=== PATIENT | female | born 1985 | race Caucasian/White ===

== ENCOUNTER 2017-06-26 20:12 | Emergency (ER) | payer OTHER ==
[~2017-06-26] VITALS: Ht 157.5 cm; Wt 59.0 kg
[~2017-06-26 20:12] MED LIST: ALBU90OI INH; ALBU90OI6 INH; AMOCLA875 PO; AMOX500 PO; ARIP10 PO; ARIP15 PO; ARIP30 PO; Abilify2 MG; BENZ1 PO; BENZ2 PO; Benadryl 50 mg50 MG PO; DIPH50 PO; FERR325 PO; FLUT.05NI; Ferrous Sulfat324 MG PO; GABA300 PO; HYDACE5 PO; IBUP600 PO; IBUP800 PO; LATUDA20 MG PO; LEVFLO500 PO; LEVSOD100 PO; LEVSOD25 PO; LEVSOD50 PO; LEVSOD75 PO; LITH300C PO; LITH300ER PO; LORA10 PO; LOXA10 PO; LOXA5 PO; Macrobid 100 M100 MG PO; OLAN10 PO; OXYACE5T PO; PENVK500 PO; PROM25 PO; QUET200; RISPERDAL IM; SERT50 PO; SULTRIDS PO; TRAM50 PO; Verotin-Gr Cap1 EACH PO; ZIPR20 PO; ZOLP10 PO; [UNRECOGNIZED DRUG - OTHER] PO
[2017-06-26] MEDS ORDERED: Benadryl 50 mg50 MG PO (20:40)
== END 2017-06-26 20:45 | disposition home or self-care (01) ==
LOC: ER 20:12
DX: R51 Headache (principal); F20.9 Schizophrenia, unspecified; F32.9 Major depressive disorder, single episode, unspecified; F17.200 Nicotine dependence, unspecified, uncomplicated; Z88.8 Allergy status to other drugs, medicaments and biological substances; Z79.899 Other long term (current) drug therapy
CPT/HCPCS: 99283

== ENCOUNTER 2017-06-29 20:28 | Emergency (ER) | payer OTHER ==
[~2017-06-29] VITALS: Ht 160 cm; Wt 65.8 kg
== END 2017-06-29 21:18 | disposition home or self-care (01) ==
LOC: ER 20:28
DX: G24.09 Other drug induced dystonia (principal); F32.9 Major depressive disorder, single episode, unspecified; F17.200 Nicotine dependence, unspecified, uncomplicated; F20.9 Schizophrenia, unspecified; Z88.8 Allergy status to other drugs, medicaments and biological substances; Z79.899 Other long term (current) drug therapy
CPT/HCPCS: 99283

== ENCOUNTER 2017-07-28 15:27 | Emergency (ER) | payer OTHER ==
[~2017-07-28] VITALS: Ht 157.5 cm; Wt 59.0 kg
[2017-07-29] MEDS ORDERED: Abilify2 MG (15:34)
[2017-07-29] MEDS ORDERED: FERSU90EL (15:35)
[2017-07-29] MEDS ORDERED: CLON.2 (15:35)
[2017-07-29] MEDS ORDERED: LEVSOD100 (15:35)
== END 2017-07-28 16:13 | disposition home or self-care (01) ==
LOC: ER 15:27
DX: G24.09 Other drug induced dystonia (principal); T43.595A Adverse effect of other antipsychotics and neuroleptics, initial encounter; F20.9 Schizophrenia, unspecified; F32.9 Major depressive disorder, single episode, unspecified; F17.210 Nicotine dependence, cigarettes, uncomplicated; Z88.8 Allergy status to other drugs, medicaments and biological substances; Z79.899 Other long term (current) drug therapy
CPT/HCPCS: 96372; 99283; J1200

== ENCOUNTER 2017-07-29 14:10 | Emergency (ER) | payer OTHER ==
[~2017-07-29] VITALS: Ht 157.5 cm; Wt 59.0 kg
[2017-07-29] MEDS ORDERED: Abilify2 MG (15:34)
[2017-07-29] MEDS ORDERED: CLON.2 (15:35)
[2017-07-29] MEDS ORDERED: FERSU90EL (15:35)
[2017-07-29] MEDS ORDERED: LEVSOD100 (15:35)
== END 2017-07-29 15:51 | disposition home or self-care (01) ==
LOC: ER 14:10
DX: G24.9 Dystonia, unspecified (principal); Z88.8 Allergy status to other drugs, medicaments and biological substances; Z79.899 Other long term (current) drug therapy; F20.9 Schizophrenia, unspecified; F32.9 Major depressive disorder, single episode, unspecified; F17.210 Nicotine dependence, cigarettes, uncomplicated
CPT/HCPCS: 96372; 99283; J1200

== ENCOUNTER 2017-07-31 07:55 | Emergency (ER) | payer OTHER ==
[~2017-07-31] VITALS: Ht 157.5 cm; Wt 59.0 kg
[~2017-07-31 07:55] MED LIST changes: +CLON.2; +FERSU90EL; +LEVSOD100
== END 2017-07-31 09:12 | disposition home or self-care (01) ==
LOC: ER 07:55
DX: G24.09 Other drug induced dystonia (principal); T43.595A Adverse effect of other antipsychotics and neuroleptics, initial encounter; F20.9 Schizophrenia, unspecified; F32.9 Major depressive disorder, single episode, unspecified; Z88.8 Allergy status to other drugs, medicaments and biological substances; Z79.899 Other long term (current) drug therapy
CPT/HCPCS: 99283

== ENCOUNTER → 2017-08-04 | Outpatient (CLI) | payer OTHER ==
[2017-08-04 11:50] LABS: U Amphetamine Screen Not Detected; U Barbituate Screen Not Detected; U Benzodiazapine Screen Not Detected; U Buprenorphine Screen Not Detected; U Cannabinoids Screen Not Detected; U Cocaine Screen Not Detected; U Methadone Screen Not Detected; U Methamphetamine Screen Not Detected; U Opiates Screen Not Detected; U Oxycodone Screen Not Detected; U Phencyclidine Screen Not Detected; U Propoxyphene Screen Not Detected
== END ==
LOC: LAB 11:07 → LAB SHORT 11:07
PROVIDERS: Psychiatry & Neurology Psychiatry
DX: F19.10 Other psychoactive substance abuse, uncomplicated (principal); Z79.899 Other long term (current) drug therapy

== ENCOUNTER → 2017-08-15 | Outpatient (CLI) | payer OTHER ==
[2017-08-15 16:04] LABS: Percent Saturation 12.9 % (15.0-50.0)
== END ==
LOC: LAB SHORT 15:32 → LAB 15:32
PROVIDERS: Psychiatry & Neurology Psychiatry
DX: Z39.2 Encounter for routine postpartum follow-up (principal); Z13.0 Encounter for screening for diseases of the blood and blood-forming organs and certain disorders involving the immune mechanism; Z13.1 Encounter for screening for diabetes mellitus
CPT/HCPCS: 82728; 83036; 83540; 83550

== ENCOUNTER 2017-10-08 08:25 | Emergency (ER) | payer OTHER ==
[~2017-10-08] VITALS: Ht 157.5 cm; Wt 54.4 kg
== END 2017-10-08 11:17 | disposition home or self-care (01) ==
LOC: ER 08:25
DX: R10.2 Pelvic and perineal pain (principal); M54.5 Low back pain; F17.210 Nicotine dependence, cigarettes, uncomplicated; F32.9 Major depressive disorder, single episode, unspecified; F20.9 Schizophrenia, unspecified; Z88.8 Allergy status to other drugs, medicaments and biological substances; Z79.899 Other long term (current) drug therapy
CPT/HCPCS: 74022; 99284

== ENCOUNTER 2018-10-13 19:40 | Emergency (ER) | payer OTHER ==
[~2018-10-13] VITALS: Ht 157.5 cm; Wt 59.0 kg
[2018-10-13 20:30] LABS: Source, Urine Clean Catch
[2018-10-13 20:36] LABS: Bilirubin, Urine Neg (Neg); Blood, Urine 1+ (Neg); Glucose Qualitative, Urine Neg (Neg); Ketones, Urine 1+ (Neg); Leukocyte Esterase, Urine 1+ (Neg); Nitrite, Urine Neg (Neg); Protein, Urine 1+ (Neg); Specific Gravity, Urine 1.025 (1.003-1.022); Urobilinogen, Urine 1+ (Normal)
[2018-10-13 20:38] LABS: Color, Urine Yellow (P-Yellow)
[2018-10-13 20:39] LABS: Appearance, Urine Clear (Clear)
[2018-10-13] MEDS ORDERED: KETO10 PO (20:53)
[2018-10-13 20:54] LABS: Bacteria Few /hpf; Mucus Mod (0-Heavy); Red Blood Cells, Urine 0-2 /hpf (0-2); Squamous Epithelial Cells Few /hpf (Few); White Blood Cells, Urine 0-2 /hpf (0-5)
== END 2018-10-13 21:00 | disposition home or self-care (01) ==
LOC: ER 19:40
PROVIDERS: Physician Assistant
DX: N94.6 Dysmenorrhea, unspecified (principal); F17.210 Nicotine dependence, cigarettes, uncomplicated; F20.9 Schizophrenia, unspecified; F32.9 Major depressive disorder, single episode, unspecified; Z79.899 Other long term (current) drug therapy
CPT/HCPCS: 81001; 87086; 96372; 99283-25; J1885

== ENCOUNTER → 2020-05-28 | Outpatient (CLI) | payer OTHER ==
[~2020-05-28] MED LIST changes: +KETO10 PO
[2020-05-29 14:05] LABS: Candida species (DNA Probe) Negative (NEGATIVE); G. vaginalis (DNA Probe) Positive (NEGATIVE); T. vaginalis (DNA Probe) Negative (NEGATIVE)
[2020-05-30 13:10] LABS: CHLAMYDIA BY NAA Negative (Negative); GONOCOCCUS BY NAA Negative (Negative); TRICH VAG BY NAA Negative (Negative)
== END | disposition home or self-care (01) ==
LOC: LAB EV 16:33
PROVIDERS: Physician Assistant
DX: Z20.9 Contact with and (suspected) exposure to unspecified communicable disease (principal); Z11.3 Encounter for screening for infections with a predominantly sexual mode of transmission
CPT/HCPCS: 87480; 87491; 87510; 87591; 87660; 87661

== ENCOUNTER → 2021-05-25 | Outpatient (CLI) | payer OTHER ==
[2021-05-25 19:14] LABS: BASOPHILS ABSOLUTE AUTO 0.05 K/mm3 (0.00-0.23); BASOPHILS PERCENT AUTO 1 % (0-2); EOSINOPHILS ABSOLUTE AUTO 0.04 K/mm3 (0.00-0.68); EOSINOPHILS PERCENT AUTO 1 % (0-6); Hematocrit 38.3 % (33.0-51.0); Hemoglobin 12.8 g/dL (11.5-16.0); IMMATURE GRAN ABSOLUTE AUTO 0.03 K/mm3 (0.00-0.10); IMMATURE GRAN PERCENT AUTO 0 % (0-1); LYMPHOCYTES ABSOLUTE AUTO 2.36 K/mm3 (0.84-5.20); LYMPHOCYTES PERCENT AUTO 28 % (21-46); MONOCYTES ABSOLUTE AUTO 0.38 K/mm3 (0.16-1.47); MONOCYTES PERCENT AUTO 5 % (4-13); Mean Corpuscular HGB Conc 33.4 g/dL (31.5-36.5); Mean Corpuscular Volume 102 fL (80-100); Mean Platelet Volume 9.4 fL (9.1-12.4); NEUTROPHILS ABSOLUTE AUTO 5.57 K/mm3 (1.96-9.15); NEUTROPHILS PERCENT AUTO 66 % (41-73); Platelet Count 286 K/mm3 (150-400); RDW Coefficient Variation 17.2 % (11.7-14.2); Red Blood Cell Count 3.77 M/mm3 (3.80-5.20); White Blood Cell Count 8.43 K/mm3 (4.00-11.30)
[2021-05-25 19:29] LABS: Free Thyroxine 0.27 ng/dL (0.70-1.60)
[2021-05-25 19:58] LABS: Triiodothyronine, Free 1.18 pg/mL (2.18-3.98)
== END ==
LOC: LAB SHORT 16:00
PROVIDERS: Family Medicine
DX: D64.9 Anemia, unspecified (principal); E03.9 Hypothyroidism, unspecified
CPT/HCPCS: 84439; 84443; 84481; 85025

== ENCOUNTER → 2021-07-22 | Outpatient (CLI) | payer OTHER | END | disposition home or self-care (01) | LOC: LAB SHORT 18:59 → LAB 18:59 | DX: E03.9 Hypothyroidism, unspecified (principal) | CPT/HCPCS: 84443 ==

== ENCOUNTER 2021-08-15 16:56 | Emergency (ER) | payer OTHER ==
[~2021-08-15] VITALS: Ht 160 cm; Wt 102.1 kg
== END 2021-08-15 18:55 | disposition home or self-care (01) ==
LOC: ER 16:56
DX: F41.9 Anxiety disorder, unspecified (principal); F17.210 Nicotine dependence, cigarettes, uncomplicated; Z88.8 Allergy status to other drugs, medicaments and biological substances
CPT/HCPCS: A9270

== ENCOUNTER 2022-01-22 16:54 | Emergency (ER) | payer OTHER ==
[~2022-01-22] VITALS: Ht 157.5 cm; Wt 77.1 kg
[2022-01-22] MEDS ORDERED: ABILIFY MAINTE400 M1 IM (17:57)
[2022-01-22] MEDS ORDERED: EUTHYROX112 MC1 PO (17:58)
== END 2022-01-22 18:05 | disposition home or self-care (01) ==
LOC: ER 16:54
DX: R25.8 Other abnormal involuntary movements (principal); R68.84 Jaw pain; F17.210 Nicotine dependence, cigarettes, uncomplicated; Z79.899 Other long term (current) drug therapy; Z88.8 Allergy status to other drugs, medicaments and biological substances
CPT/HCPCS: J1200

== ENCOUNTER 2022-01-23 19:09 | Emergency (ER) | payer OTHER ==
[~2022-01-23] VITALS: Ht 157.5 cm; Wt 77.1 kg
[~2022-01-23 19:09] MED LIST changes: +ABILIFY MAINTE400 M1 IM; +EUTHYROX112 MC1 PO
== END 2022-01-23 20:12 | disposition home or self-care (01) ==
LOC: ER 19:09
DX: R25.9 Unspecified abnormal involuntary movements (principal); F17.210 Nicotine dependence, cigarettes, uncomplicated; Z88.8 Allergy status to other drugs, medicaments and biological substances
CPT/HCPCS: 99283

== ENCOUNTER 2022-01-24 19:57 | Emergency (ER) | payer OTHER ==
[~2022-01-24] VITALS: Ht 157.5 cm; Wt 77.1 kg
== END 2022-01-24 22:20 | disposition home or self-care (01) ==
LOC: ER 19:57
DX: T78.40XA Allergy, unspecified, initial encounter (principal); F17.210 Nicotine dependence, cigarettes, uncomplicated
CPT/HCPCS: 99285

== ENCOUNTER 2022-08-14 18:13 | Emergency (ER) | payer OTHER ==
[~2022-08-14] VITALS: Ht 157.5 cm; Wt 73.5 kg
[2022-08-14 19:15] LABS: BASOPHILS ABSOLUTE AUTO 0.04 K/mm3 (0.00-0.23); BASOPHILS PERCENT AUTO 1 % (0-2); EOSINOPHILS ABSOLUTE AUTO 0.06 K/mm3 (0.00-0.68); EOSINOPHILS PERCENT AUTO 1 % (0-6); Hematocrit 41.2 % (33.0-51.0); Hemoglobin 13.9 g/dL (11.5-16.0); IMMATURE GRAN ABSOLUTE AUTO 0.03 K/mm3 (0.00-0.10); IMMATURE GRAN PERCENT AUTO 0 % (0-1); LYMPHOCYTES ABSOLUTE AUTO 2.39 K/mm3 (0.84-5.20); LYMPHOCYTES PERCENT AUTO 28 % (21-46); MONOCYTES ABSOLUTE AUTO 0.34 K/mm3 (0.16-1.47); MONOCYTES PERCENT AUTO 4 % (4-13); Mean Corpuscular HGB Conc 33.7 g/dL (31.5-36.5); Mean Corpuscular Volume 98 fL (80-100); Mean Platelet Volume 10.5 fL (9.1-12.4); NEUTROPHILS ABSOLUTE AUTO 5.62 K/mm3 (1.96-9.15); NEUTROPHILS PERCENT AUTO 66 % (41-73); Platelet Count 325 K/mm3 (150-400); RDW Coefficient Variation 12.6 % (11.7-14.2); RDW Standard Deviation 45.4 fL (35.1-46.3); Red Blood Cell Count 4.21 M/mm3 (3.80-5.20); White Blood Cell Count 8.48 K/mm3 (4.00-11.30)
[2022-08-14 19:19] LABS: Source, Urine Clean Catch
[2022-08-14 19:21] LABS: Appearance, Urine Clear (Clear); Bilirubin, Urine Neg (Neg); Blood, Urine Neg (Neg); Color, Urine Yellow (P-Yellow); Glucose Qualitative, Urine 4+ (Neg); Ketones, Urine 3+ (Neg); Leukocyte Esterase, Urine Neg (Neg); Nitrite, Urine Neg (Neg); Protein, Urine Neg (Neg); Urobilinogen, Urine NORM (Normal)
[2022-08-14 19:34] LABS: Bilirubin, Total 0.2 mg/dL (0.1-1.0); Bun/Creatinine Ratio 12.3 (12.0-20.0); Calcium, Blood 10.1 mg/dL (8.5-10.1); Creatinine, Blood 0.57 mg/dL (0.40-1.00); Globulin, Blood 4.2 g/dL (2.2-4.0); Potassium, Blood 4.2 mmol/L (3.5-5.5); Total Protein, Blood 8.2 g/dL (6.4-8.2)
[2022-08-14 22:07] LABS: Candida species (DNA Probe) Positive (NEGATIVE); G. vaginalis (DNA Probe) Positive (NEGATIVE); T. vaginalis (DNA Probe) Negative (NEGATIVE)
[2022-08-14] MEDS ORDERED: Diflucan150 MG PO (22:34)
[2022-08-14] MEDS ORDERED: METF500 PO (22:34)
== END 2022-08-14 23:07 | disposition home or self-care (01) ==
LOC: ER 18:13
PROVIDERS: Emergency Medicine; Student in an Organized Health Care Education/Training Program
DX: E11.65 Type 2 diabetes mellitus with hyperglycemia (principal); B37.31 Acute candidiasis of vulva and vagina; F20.9 Schizophrenia, unspecified; F17.200 Nicotine dependence, unspecified, uncomplicated; Z79.899 Other long term (current) drug therapy
CPT/HCPCS: 36415; 80053; 81003; 82947; 83036; 85025; 87480; 87510; 87660; A9270; J1815; J7120

== ENCOUNTER → 2023-06-29 | Outpatient (CLI) | payer OTHER ==
[~2023-06-29] MED LIST changes: +Diflucan150 MG PO; +METF500 PO
== END ==
LOC: LAB 17:42 → LAB SHORT 17:42
DX: E03.9 Hypothyroidism, unspecified (principal)
CPT/HCPCS: 84443

== ENCOUNTER 2023-07-31 14:34 | Emergency (ER) | payer OTHER ==
[~2023-07-31] VITALS: Ht 157.5 cm; Wt 57.6 kg
[2023-07-31 14:39] VITALS: BP 104/91
== END 2023-07-31 16:11 | disposition home or self-care (01) ==
LOC: ER 14:34
DX: S00.12XA Contusion of left eyelid and periocular area, initial encounter (principal); S00.11XA Contusion of right eyelid and periocular area, initial encounter; S00.83XA Contusion of other part of head, initial encounter; F17.210 Nicotine dependence, cigarettes, uncomplicated; F20.9 Schizophrenia, unspecified; F32.A Depression, unspecified; X58.XXXA Exposure to other specified factors, initial encounter; Z79.899 Other long term (current) drug therapy; Z79.890 Hormone replacement therapy; Z79.84 Long term (current) use of oral hypoglycemic drugs; Z88.8 Allergy status to other drugs, medicaments and biological substances
CPT/HCPCS: 70450; 70486; 99283-25

== ENCOUNTER 2023-12-25 10:57 | Emergency (ER) | payer OTHER ==
[~2023-12-25] VITALS: Ht 157.5 cm; Wt 52.2 kg
[2023-12-25 11:35] LABS: BASOPHILS ABSOLUTE AUTO 0.04 K/mm3 (0.00-0.23); BASOPHILS PERCENT AUTO 0 % (0-2); EOSINOPHILS ABSOLUTE AUTO 0.05 K/mm3 (0.00-0.68); EOSINOPHILS PERCENT AUTO 0 % (0-6); Hematocrit 36.8 % (33.0-51.0); Hemoglobin 12.6 g/dL (11.5-16.0); IMMATURE GRAN ABSOLUTE AUTO 0.03 K/mm3 (0.00-0.10); IMMATURE GRAN PERCENT AUTO 0 % (0-1); LYMPHOCYTES ABSOLUTE AUTO 2.43 K/mm3 (0.84-5.20); LYMPHOCYTES PERCENT AUTO 21 % (21-46); MONOCYTES ABSOLUTE AUTO 0.33 K/mm3 (0.16-1.47); MONOCYTES PERCENT AUTO 3 % (4-13); Mean Corpuscular HGB 31.9 pg (26.0-34.0); Mean Corpuscular HGB Conc 34.2 g/dL (31.5-36.5); Mean Corpuscular Volume 93 fL (80-100); Mean Platelet Volume 9.6 fL (9.1-12.4); NEUTROPHILS ABSOLUTE AUTO 8.98 K/mm3 (1.96-9.15); NEUTROPHILS PERCENT AUTO 76 % (41-73); Platelet Count 355 K/mm3 (150-400); RDW Coefficient Variation 13.3 % (11.7-14.2); RDW Standard Deviation 45.6 fL (35.1-46.3); Red Blood Cell Count 3.95 M/mm3 (3.80-5.20); White Blood Cell Count 11.86 K/mm3 (4.00-11.30)
[2023-12-25] MEDS ORDERED: VRAYLAR1.5 MG PO (11:44)
[2023-12-25] MEDS ORDERED: METF500 PO (11:45)
[2023-12-25] MEDS ORDERED: GLIP10ER PO (11:45)
[2023-12-25 12:02] LABS: Ethanol (Alcohol), Blood, Med <3 mg/dL
[2023-12-25 12:08] LABS: Alanine Aminotransfer (ALT/SGP 36 U/L (12-78); Albumin, Blood 4.1 g/dL (3.4-5.0); Albumin/Globulin Ratio 1.1 (0.8-1.8); Alk Phos 120 U/L (50-136); Anion Gap 10 mmol/L (3-11); Aspartate Aminotrans (AST/SGOT 52 U/L (12-37); Bilirubin, Total 0.4 mg/dL (0.1-1.0); Blood Urea Nitrogen 10 mg/dL (8-24); CO2, Blood 27 mmol/L (21-32); Calcium, Blood 9.1 mg/dL (8.5-10.1); Chloride, Blood 98 mmol/L (98-108); Creatinine, Blood 0.72 mg/dL (0.40-1.00); Globulin, Blood 3.7 g/dL (2.2-4.0); Glomerular Filtration Rate 111 (60-); Potassium, Blood 3.8 mmol/L (3.5-5.5); Sodium, Blood 131 mmol/L (136-145); Total Protein, Blood 7.8 g/dL (6.4-8.2)
[2023-12-25 12:15] LABS: Glucose, Blood 538 mg/dL (70-99)
[2023-12-25] MEDS ORDERED: levETIRAcetam 1,000 MG in NS 100 ML IV ONE (13:15)
[2023-12-25] MEDS ORDERED: Prochlorperazine Edisylate 10 mg Vial IV ONE (13:30)
[2023-12-25 14:22] LABS: Source, Urine Voided
[2023-12-25 14:29] LABS: Appearance, Urine Hazy (Clear); Bilirubin, Urine Neg (Neg); Blood, Urine 4+ (Neg); Color, Urine Yellow (P-Yellow); Glucose Qualitative, Urine 4+ (Neg); Ketones, Urine 1+ (Neg); Leukocyte Esterase, Urine Neg (Neg); Nitrite, Urine Pos (Neg); Protein, Urine Neg (Neg); Urobilinogen, Urine NORM (Normal); pH, Urine 6.5 (5.0-8.0)
[2023-12-25 14:30] VITALS: BP 110/83
[2023-12-25 14:43] LABS: U Amphetamine Screen Not Detected; U Barbituate Screen Not Detected; U Benzodiazapine Screen Not Detected; U Buprenorphine Screen Not Detected; U Cannabinoids Screen Not Detected; U Cocaine Screen Not Detected; U Methadone Screen Not Detected; U Methamphetamine Screen Not Detected; U Opiates Screen Not Detected; U Oxycodone Screen Not Detected; U Phencyclidine Screen Not Detected
[2023-12-25 14:51] LABS: Bacteria Many /hpf; Squamous Epithelial Cells Rare /hpf (Few)
[2023-12-25] MEDS ORDERED: LEVE500 PO (14:58)
== END 2023-12-25 15:07 | disposition home or self-care (01) ==
LOC: ER 10:57
PROVIDERS: Emergency Medicine
DX: R56.9 Unspecified convulsions (principal); S00.03XA Contusion of scalp, initial encounter; S40.012A Contusion of left shoulder, initial encounter; S00.83XA Contusion of other part of head, initial encounter; F17.210 Nicotine dependence, cigarettes, uncomplicated; E03.9 Hypothyroidism, unspecified; E11.9 Type 2 diabetes mellitus without complications; W19.XXXA Unspecified fall, initial encounter; Z79.84 Long term (current) use of oral hypoglycemic drugs; Z79.899 Other long term (current) drug therapy; Z88.8 Allergy status to other drugs, medicaments and biological substances
CPT/HCPCS: 70450; 72125; 80053; 81001; 82947; 84703; 85025; 87077; 87086; 87186; 93005; 93010; 96365; 99285-25; J1953

== ENCOUNTER 2024-06-12 16:21 | Inpatient (IN) | payer OTHER ==
[~2024-06-12] VITALS: Ht 157.5 cm; Wt 39.5 kg
[~2024-06-12 16:21] MED LIST changes: +GLIP10ER PO; +LEVE500 PO; +VRAYLAR1.5 MG PO
[2024-06-12 17:37] LABS: Source, Urine Clean Catch
[2024-06-12 17:42] LABS: Appearance, Urine Clear (Clear); Bilirubin, Urine Neg (Neg); Blood, Urine 5+ (Neg); Glucose Qualitative, Urine 4+ (Neg); Ketones, Urine 4+ (Neg); Leukocyte Esterase, Urine Neg (Neg); Nitrite, Urine Neg (Neg); Protein, Urine 1+ (Neg); Specific Gravity, Urine 1.015 (1.003-1.022); Urobilinogen, Urine NORM (Normal)
[2024-06-12 17:50] LABS: Bacteria Rare /hpf; Color, Urine Pale Yellow (P-Yellow); Squamous Epithelial Cells Rare /hpf (Few); White Blood Cells, Urine 0-2 /hpf (0-5)
[2024-06-12 17:57] LABS: BASOPHILS ABSOLUTE AUTO 0.02 K/mm3 (0.00-0.23); BASOPHILS PERCENT AUTO 0 % (0-2); EOSINOPHILS PERCENT AUTO 0 % (0-6); Hematocrit 36.6 % (33.0-51.0); IMMATURE GRAN ABSOLUTE AUTO 0.03 K/mm3 (0.00-0.10); IMMATURE GRAN PERCENT AUTO 0 % (0-1); LYMPHOCYTES ABSOLUTE AUTO 1.39 K/mm3 (0.84-5.20); LYMPHOCYTES PERCENT AUTO 14 % (21-46); MONOCYTES ABSOLUTE AUTO 0.42 K/mm3 (0.16-1.47); MONOCYTES PERCENT AUTO 4 % (4-13); Mean Corpuscular HGB 30.8 pg (26.0-34.0); Mean Corpuscular HGB Conc 32.8 g/dL (31.5-36.5); Mean Corpuscular Volume 94 fL (80-100); NEUTROPHILS ABSOLUTE AUTO 7.92 K/mm3 (1.96-9.15); NEUTROPHILS PERCENT AUTO 81 % (41-73); Platelet Count 252 K/mm3 (150-400); RDW Coefficient Variation 16.3 % (11.7-14.2); RDW Standard Deviation 56.5 fL (35.1-46.3); White Blood Cell Count 9.78 K/mm3 (4.00-11.30)
[2024-06-12 18:10] LABS: Influenza A, PCR NEGATIVE (NEGATIVE); Influenza B, PCR NEGATIVE (NEGATIVE); Resp Syncytial Virus, PCR NEGATIVE (NEGATIVE); SARS-Cov-2 (COVID-19) PCR, MMC NEGATIVE (NEGATIVE)
[2024-06-12 18:32] LABS: Albumin, Blood 3.3 g/dL (3.4-5.0); Albumin/Globulin Ratio 0.6 (0.8-1.8); Bilirubin, Total 0.7 mg/dL (0.1-1.0); Bun/Creatinine Ratio 40.6 (12.0-20.0); Calcium, Blood 11.2 mg/dL (8.5-10.1); Creatinine, Blood 0.54 mg/dL (0.40-1.00); Globulin, Blood 5.2 g/dL (2.2-4.0); Potassium, Blood 3.9 mmol/L (3.5-5.5); Total Protein, Blood 8.5 g/dL (6.4-8.2)
[2024-06-12] MEDS ORDERED: Potassium Chloride 20 MEQ in Sodium Chloride 0.45% 1,000 ML IV SCH (18:50)
[2024-06-12] MEDS ORDERED: Insulin Human Regular 100 UNIT in NS 100 ML IV SCH (18:50)
[2024-06-12 20:34] LABS: Base Excess Venous -4.4 mmol/L; Bicarbonate Venous 20.9 mmol/L (24.0-30.0); pH Blood Venous 7.32 (7.34-7.37)
[2024-06-12] MEDS ORDERED: Ondansetron HCl 2 MG / ML 2ML Vial IV PRN (20:50)
[2024-06-12] MEDS ORDERED: Insulin Regular 100 Unit/ML 1ML Dose IV ONE (20:55)
[2024-06-12] MEDS ORDERED: Lactated Ringer's 1,000 ML IV SCH ×2 (20:55→21:00)
[2024-06-12] MEDS ORDERED: Dextrose 50% 50 ML Vial IV PRN (21:00)
[2024-06-12] MEDS ORDERED: LevETIRAcetam 500 MG Tab PO SCH (21:00)
[2024-06-12] MEDS ORDERED: Potassium Chl 20MEQ/Water100ML 100 ML IV SCH (21:00)
[2024-06-12] MEDS ORDERED: Potassium Chloride 20 MEQ TabCR PO ONE (21:00)
[2024-06-12 22:00] VITALS: BP 111/86
[2024-06-12] MEDS ORDERED: FLU VACC TS2024-25(6MOS UP)/PF 45 MCG/0.5 ML SYRINGE IM ONE (22:00)
[2024-06-12 22:30] VITALS: BP 116/71
[2024-06-12 23:00] LABS: Bun/Creatinine Ratio 30.5 (12.0-20.0); Calcium, Blood 10.8 mg/dL (8.5-10.1); Creatinine, Blood 0.59 mg/dL (0.40-1.00); Potassium, Blood 3.2 mmol/L (3.5-5.5)
--- NOTE | 2024-06-12 23:12 | NUR ---
ER ADMIT TO ICU 11: PT ARRIVED TO ICU 11 @ 2232; PT ADMITTED WITH DKA. PT BROUGHT UP TO UNIT WITH INSULIN @ 4 UNITS/HR, LR BOLUS WO AND 20 MEQ KCL INFUSING. PT A&O X 4, TALKS CHILD-LIKE, FOLLOWING DIRECTIONS BUT VERBALIZING ANXIETY/AGGITATION. PT BECOMES INCREASINGLY AGGITATED WHEN ASKED BACKGROUND QUESTIONS REGARDING DRUGS/ALCOHOL. CIWA SCORING AT 12. PT ARRIVES ON RA, SPO2 90<, LUNGS CLEAR/DIM AND DENIES SOB. SR ON MONITOR WITH HR 70'S, AND DENIES CHEST PAIN/PRESSURE, PT C/O BODY ACHES AND HEADACHE AT THIS TIME. SKIN OVERALL INTACT.
[2024-06-12] MEDS ORDERED: NS 250 ML IV PRN (23:20)
[2024-06-12 23:45] VITALS: BP 105/79
[2024-06-12 23:51] LABS: Glucose, Blood 494 mg/dL (70-99)
[2024-06-13] VITALS (43 sets, daily range): BP systolic 85–120; BP diastolic 60–88
[2024-06-13 00:01] LABS: U Amphetamine Screen DETECTED; U Barbituate Screen Not Detected; U Benzodiazapine Screen Not Detected; U Buprenorphine Screen Not Detected; U Cannabinoids Screen Not Detected; U Cocaine Screen Not Detected; U Methadone Screen Not Detected; U Methamphetamine Screen DETECTED; U Opiates Screen Not Detected; U Oxycodone Screen Not Detected; U Phencyclidine Screen Not Detected
[2024-06-13] MEDS ORDERED: NS 1,000 ML IV SCH (00:05)
[2024-06-13] MEDS ORDERED: ChlordiazePOXIDE 25 MG Cap PO PRN (00:15)
[2024-06-13] MEDS ORDERED: LORazepam 2 MG/ML 1ML Injection IV PRN (00:15)
[2024-06-13 03:16] LABS: Bun/Creatinine Ratio 29.1 (12.0-20.0); Creatinine, Blood 0.45 mg/dL (0.40-1.00); Potassium, Blood 3.7 mmol/L (3.5-5.5)
[2024-06-13] MEDS ORDERED: D5W-1/2NS 1,000 ML IV SCH (04:25)
--- NOTE | 2024-06-13 05:41 | NUR ---
SHIFT SUMMARY: NO ACUTE CHANGES; VSS THROUGHOUT THE SHIFT. PT REMAINS ON INSULIN GTT @ 1.7 UNITS/HR; ANION GAP HAS CLOSED, WAITING FOR SECOND LAB WORK, PROVIDER AWARE. PT ON D5 1/2 NS @ 100 MLS/HR. PT HAS BEEN DROWSY, WAKES TO VERBAL STIMULI BUT BACK TO SLEEP QUICKLY. BED LOWERED, CALL LIGHT IN REACH, WILL REPORT OFF TO ONCOMING RN.
[2024-06-13] MEDS ORDERED: Levothyroxine Sodium 0.112 MG Tab PO SCH (06:00)
[2024-06-13 06:45] LABS: Bun/Creatinine Ratio 29.9 (12.0-20.0); Calcium, Blood 9.3 mg/dL (8.5-10.1); Creatinine, Blood 0.44 mg/dL (0.40-1.00); Potassium, Blood 3.3 mmol/L (3.5-5.5)
[2024-06-13] MEDS ORDERED: Potassium Chloride 20 MEQ TabCR PO ONE (07:10)
[2024-06-13] MEDS ORDERED: Insulin Glargine-Yfgn 100 Unit/mL 3 ML SYR SC ONE (07:10)
[2024-06-13] MEDS ORDERED: Multivitamins 1 Tab PO SCH (09:00)
[2024-06-13] MEDS ORDERED: Thiamine HCl 100 MG Tab PO SCH (09:00)
[2024-06-13] MEDS ORDERED: Enoxaparin 40 MG/0.4 ML SYR SC SCH (09:00)
[2024-06-13] MEDS ORDERED: Folic Acid 1 MG TAB PO SCH (09:00)
[2024-06-13 10:27] LABS: Bun/Creatinine Ratio 33.3 (12.0-20.0); Calcium, Blood 9.2 mg/dL (8.5-10.1); Creatinine, Blood 0.42 mg/dL (0.40-1.00); Potassium, Blood 3.5 mmol/L (3.5-5.5)
[2024-06-13] MEDS ORDERED: Insulin Human Lispro 100 Units/ML 3ML Syringe SC SCH (11:30)
[2024-06-13] MEDS ORDERED: Nystatin 100,000 Unit/ML Susp 5 ML UDC PO SCH (11:30)
--- NOTE | 2024-06-13 14:31 | NUR ---
Pt transferred to medical floor room 363. Report given to RN assuming care. PT taken upstairs via wheelchair. All personal belongings sent with pt to new room. VS stable at time of transfer.
[2024-06-13] MEDS ORDERED: Potassium Phosphate Dibasic 30 MM in Dextrose 5% 500 ML IV STA (18:02)
--- NOTE | 2024-06-13 18:31 | NUR ---
SHIFT SUMMARY PT ARRIVED ON UNIT AT 1444 FROM ICU. PT HAD INSULIN DRIP THIS AM BUT DRIP WAS DISCONTINUED AND AC/HS SLIDING SCALE ORDERED. PT VSS, PT HAS SOFT BP BUT DOES NOT VERBALIZE SYMPTOMS. PT SOMNOLENT AT BASELINE, ABLE TO MAKE NEEDS KNOWN. PT RECEIVED SCHEDULED MEDICATIONS. REPOSITIONED Q2HRS. LEFT IN A POSITION OF SAFETY WITH FALL PRECAUTIONS IN PLACE AND CALL LIGHT IN REACH.
[2024-06-13] MEDS ORDERED: Insulin Glargine-Yfgn 100 Unit/mL 3 ML SYR SC SCH (21:00)
[2024-06-14 04:28] VITALS: BP 103/81
--- NOTE | 2024-06-14 04:54 | NUR ---
SHIFT SUMMARY; PATIENT SLEPT IN VERY LONG INTERVALS, C/O FEELING HEAVY IN HER HEAD AND BODY. STAND BY ASSIST TO BR TOLERATED WELL, DOES NOT USE CALL LIGHT SO WE KEEP THE BED ALARM ON.
[2024-06-14 05:55] LABS: Magnesium, Blood 1.7 mg/dL (1.6-2.4)
[2024-06-14 05:56] LABS: Bun/Creatinine Ratio 23.3 (12.0-20.0); Calcium, Blood 9.3 mg/dL (8.5-10.1); Creatinine, Blood 0.52 mg/dL (0.40-1.00); Phosphorus, Blood 2.7 mg/dL (2.5-4.9); Potassium, Blood 4.1 mmol/L (3.5-5.5)
[2024-06-14 07:36] VITALS: BP 111/78
--- NOTE | 2024-06-14 11:30 | NUR ---
ROUNDING WITH DR. SINHA, PT'S CBG IS 447. DR. SINHA WITH VERBAL ORDERS TO GIVE 14 UNITS OF HUMALOG NOW.
--- NOTE | 2024-06-14 12:03 | NUR ---
CONSULT WITH CARE COORDINATION, PT, PT'S AUNT ALAINA, INSIDE SALES PROFESSIONAL, AND DR. SINHA - PLAN IS TO REQUEST A PSYCH CONSULT. PT STATES THAT SHE IS INTERESTED IN SUBSTANCE ABUSE TREATMENT PROGRAMS, AND HAS SUCCESSFULLY COMPLETED ONE IN THE PAST. HOWEVER, DUAL DIAGNOSIS OF BIPOLAR/SCHIZOPHRENIA/DEPRESSION AND NON ADHERENCE TO MEDICAL RECOMMENDATIONS MAKE IT DIFFICULT TO MAINTAIN SOBRIETY OUTPATIENT. MENDY BECOMES FRUSTRATED AND AGGITATED WITH THE DISCUSSION, HOWEVER, SHE CONSENTS TO INSULIN ADMINISTRATION FROM THE NURSE. MENDY GAVE VERBAL PERMISSION TO SPEAK WITH HER BF FLOR, HER AUNT ALAINA, AND A PEER MENTOR NAMED SENDY.
[2024-06-14 15:53] VITALS: BP 109/84
--- NOTE | 2024-06-14 17:23 | NUR ---
MENDY REMAINED IN BED MOST OF THE DAY TODAY. WHEN ASKED IF SHE IS IN PAIN, MENDY STATES, "IT'S HEAVY" BUT SHE'S NOT ABLE TO SPECIFY THE LOCATION OR TYPE OF PAIN. SHE IS PLEASANT WITH STAFF. SHE BECAME AGGITATED WHEN BOYFRIEND AND AUNT ALAINA WERE IN THE ROOM, DISCUSSING DISCHARGE PLANS WITH CARE COORDINATION. THEY WERE DISCUSSING PT'S WILLINGNESS TO TRY SUBSTANCE ABUSE TREATMENT PROGRAMS OR HOW WILL SHE MANAGE HER MENTAL HEALTH MEDICATIONS. BLOOD SUGARS CONTINUED IN THE HIGH 300'S. DR. SINHA INCREASED HER INSULIN FROM A MEDIUM SLIDING SCALE TO A HIGH SLIDING SCALE. PT INDEPENDENT IN THE ROOM. CONTINENT OF URINE AND STOOL. SHE IS WITHDRAWN, NEUTRAL AND SPEAKS SLOWLY WITH ONE WORD AT A TIME. PMH: DEPRESSION, SCHIZOPHRENIA, BIPOLAR, DKA, POLYSUBSTANCE ABUSE, SEIZURES. ROOM AIR. RENAYG AC/HS.
[2024-06-14 19:47] VITALS: BP 104/81
[2024-06-14] MEDS ORDERED: Insulin Glargine-Yfgn 100 Unit/mL 3 ML SYR SC SCH (21:00)
--- NOTE | 2024-06-15 04:52 | NUR ---
TRACK EQUIPMENT OPERATOR SUMMARY PT IS STILL VERY WITHDRAWN AND UNWILLING TO ANSWER MOST QUESTIONS BUT WILL NOD HER HEAD YES OR NO. SHE DIDNT WANT TO TALK BUT AFTER RECEIVING HER INSULIN SHOT SHE SAID "I DONT LIKE THAT. IT HURTS". SHE WILL ALSO CALL AND ASK FOR SUGAR FREE PUDDING. PT IS AMBULATING INDEPENDENTLY TO THE BATHROOM. BLOOD SUGARS REMAIN HIGH BUT PT WAS STARTED ON A NEW DOSE OF LANTUS AT BEDTIME. PSYCHE CONSULT FAXED ON [place].
[2024-06-15 05:00] VITALS: BP 106/80
[2024-06-15 06:27] LABS: BASOPHILS ABSOLUTE AUTO 0.02 K/mm3 (0.00-0.23); BASOPHILS PERCENT AUTO 0 % (0-2); EOSINOPHILS ABSOLUTE AUTO 0.01 K/mm3 (0.00-0.68); EOSINOPHILS PERCENT AUTO 0 % (0-6); Hematocrit 29.6 % (33.0-51.0); Hemoglobin 10.4 g/dL (11.5-16.0); IMMATURE GRAN ABSOLUTE AUTO 0.02 K/mm3 (0.00-0.10); IMMATURE GRAN PERCENT AUTO 0 % (0-1); LYMPHOCYTES PERCENT AUTO 24 % (21-46); MONOCYTES ABSOLUTE AUTO 0.35 K/mm3 (0.16-1.47); MONOCYTES PERCENT AUTO 5 % (4-13); Mean Corpuscular HGB Conc 35.1 g/dL (31.5-36.5); Mean Platelet Volume 9.4 fL (9.1-12.4); NEUTROPHILS ABSOLUTE AUTO 5.51 K/mm3 (1.96-9.15); NEUTROPHILS PERCENT AUTO 71 % (41-73); Platelet Count 194 K/mm3 (150-400); RDW Coefficient Variation 15.6 % (11.7-14.2); RDW Standard Deviation 50.4 fL (35.1-46.3); Red Blood Cell Count 3.36 M/mm3 (3.80-5.20); White Blood Cell Count 7.81 K/mm3 (4.00-11.30)
[2024-06-15 06:42] LABS: Albumin, Blood 2.3 g/dL (3.4-5.0); Anion Gap 9 mmol/L (3-11); Blood Urea Nitrogen 10 mg/dL (8-24); Bun/Creatinine Ratio 20.9 (12.0-20.0); CO2, Blood 33 mmol/L (21-32); Calcium, Blood 9.2 mg/dL (8.5-10.1); Chloride, Blood 94 mmol/L (98-108); Creatinine, Blood 0.48 mg/dL (0.40-1.00); Glomerular Filtration Rate 126 (60-); Glucose, Blood 108 mg/dL (70-99); Magnesium, Blood 1.9 mg/dL (1.6-2.4); Phosphorus, Blood 2.3 mg/dL (2.5-4.9); Potassium, Blood 3.4 mmol/L (3.5-5.5); Sodium, Blood 133 mmol/L (136-145)
[2024-06-15 06:48] LABS: Mean Corpuscular Volume 88 fL (80-100)
[2024-06-15 07:36] VITALS: BP 102/82
[2024-06-15] MEDS ORDERED: VRAYLAR 1.5 MG PO SCH (10:55)
[2024-06-15] MEDS ORDERED: Potassium Phosphate Dibasic 15 MM in Dextrose 5% 250 ML IV STA (13:14)
[2024-06-15] MEDS ORDERED: B-1100 M1 PO (15:32)
[2024-06-15] MEDS ORDERED: LANTUS SOL100 UNIT/1 SC (15:33)
--- NOTE | 2024-06-15 17:09 | NUR ---
DISCHARGE NOTE: PT AND S.O. EDUCATED ON INSULIN ADMINISTRATION AND MONITORING BLOOD GLUCOSE. THEY DEMOSTRATED UNDERSTANDING BY TEACHING BACK AND ADMINISTERING INSULIN UNDER THE SUPERVISION OF THIS RN. PT BLOOD GLUCOSE WAS OVER 400, NOTIFIED. PT EAGER TO LEAVE. PT AND S.O. INSTRUCTED TO START LONG ACTING INSULIN TONIGHT. PT SIGNATURE PAGE SHREDDED DUE TO BLOOD SPLATTER ON IT. POWERGLADE REMOVED BEFORE DISCHARGED. PT ESCORTED OUT TO PERSONAL VEHICLE BY RN. ALL QUESTIONS ANSWERED AT TIME OF DISCHARGE.
== END 2024-06-15 17:15 | disposition home or self-care (01) | DRG 639 ==
LOC: ER 16:21 → ICUE 22:51 → MEDS 22:51 → ICUE 22:53 → MEDS 06-13 13:46 → ENPENDDIS 06-15 15:22 → MEDS 06-15 17:15
PROVIDERS: Family Medicine; Internal Medicine; Nurse Practitioner Acute Care; Physician Assistant; Student in an Organized Health Care Education/Training Program; ADMIT Internal Medicine
PROC: 3E02340 Introduction of Influenza Vaccine into Muscle, Percutaneous Approach (ICD-10-PCS; principal; 2024-06-12)
PROC: HZ2ZZZZ Detoxification Services for Substance Abuse Treatment (ICD-10-PCS; 2024-06-12)
DX: E11.10 Type 2 diabetes mellitus with ketoacidosis without coma (principal); F10.20 Alcohol dependence, uncomplicated; E03.9 Hypothyroidism, unspecified; G40.909 Epilepsy, unspecified, not intractable, without status epilepticus; F15.10 Other stimulant abuse, uncomplicated; F32.A Depression, unspecified; F20.9 Schizophrenia, unspecified; Y90.0 Blood alcohol level of less than 20 mg/100 ml; E87.6 Hypokalemia; E83.39 Other disorders of phosphorus metabolism; Z98.890 Other specified postprocedural states; Z91.148 Patient's other noncompliance with medication regimen for other reason; Z79.899 Other long term (current) drug therapy; Z88.8 Allergy status to other drugs, medicaments and biological substances; Z79.84 Long term (current) use of oral hypoglycemic drugs; Z79.890 Hormone replacement therapy; Z71.6 Tobacco abuse counseling; Z23 Encounter for immunization
CPT/HCPCS: 0241U; 36415; 71046; 80048; 80053; 80069; 80320; 81001; 81025; 82010; 82803; 82947; 83036; 83690; 83735; 83930; 84100; 84436; 84443; 85025; 90656; 93005; 93010; A9270; C1751; G0008; J1650; J1815; J3480; J7030; J7042; J7050; J7060; J7120

== ENCOUNTER 2024-06-21 11:36 | Observation (INO) | payer OTHER ==
[~2024-06-21] VITALS: Ht 157.5 cm; Wt 46.2 kg
[2024-06-21] VITALS (12 sets, daily range): BP systolic 92–104; BP diastolic 73–82
[~2024-06-21 11:36] MED LIST changes: +B-1100 M1 PO; +LANTUS SOL100 UNIT/1 SC
[2024-06-21 15:14] LABS: BASOPHILS ABSOLUTE AUTO 0.05 K/mm3 (0.00-0.23); BASOPHILS PERCENT AUTO 0 % (0-2); EOSINOPHILS ABSOLUTE AUTO 0.04 K/mm3 (0.00-0.68); EOSINOPHILS PERCENT AUTO 0 % (0-6); Hematocrit 29.2 % (33.0-51.0); Hemoglobin 10.4 g/dL (11.5-16.0); IMMATURE GRAN ABSOLUTE AUTO 0.04 K/mm3 (0.00-0.10); IMMATURE GRAN PERCENT AUTO 0 % (0-1); LYMPHOCYTES ABSOLUTE AUTO 2.91 K/mm3 (0.84-5.20); LYMPHOCYTES PERCENT AUTO 23 % (21-46); MONOCYTES ABSOLUTE AUTO 0.45 K/mm3 (0.16-1.47); MONOCYTES PERCENT AUTO 4 % (4-13); Mean Corpuscular HGB 31.4 pg (26.0-34.0); Mean Corpuscular HGB Conc 35.6 g/dL (31.5-36.5); Mean Corpuscular Volume 88 fL (80-100); Mean Platelet Volume 8.5 fL (9.1-12.4); NEUTROPHILS ABSOLUTE AUTO 9.29 K/mm3 (1.96-9.15); NEUTROPHILS PERCENT AUTO 73 % (41-73); Platelet Count 666 K/mm3 (150-400); RDW Coefficient Variation 16.1 % (11.7-14.2); RDW Standard Deviation 51.5 fL (35.1-46.3); Red Blood Cell Count 3.31 M/mm3 (3.80-5.20); White Blood Cell Count 12.78 K/mm3 (4.00-11.30)
[2024-06-21] MEDS ORDERED: Ketorolac Tromethamine 30mg Vial IV ONE (15:20)
[2024-06-21 15:28] LABS: Base Excess Venous 5.2 mmol/L; Bicarbonate Venous 28.7 mmol/L (24.0-30.0); PCO2 Venous 35.2 mmHg (38-42); pH Blood Venous 7.51 (7.34-7.37)
[2024-06-21 15:36] LABS: Alanine Aminotransfer (ALT/SGP 57 U/L (12-78); Albumin, Blood 3.2 g/dL (3.4-5.0); Albumin/Globulin Ratio 0.7 (0.8-1.8); Alk Phos 314 U/L (50-136); Anion Gap 14 mmol/L (3-11); Aspartate Aminotrans (AST/SGOT 64 U/L (12-37); Bilirubin, Total 0.5 mg/dL (0.1-1.0); Blood Urea Nitrogen 14 mg/dL (8-24); Bun/Creatinine Ratio 23.6 (12.0-20.0); CO2, Blood 27 mmol/L (21-32); Calcium, Blood 10.1 mg/dL (8.5-10.1); Chloride, Blood 88 mmol/L (98-108); Creatinine, Blood 0.59 mg/dL (0.40-1.00); Globulin, Blood 4.4 g/dL (2.2-4.0); Glomerular Filtration Rate 120 (60-); Glucose, Blood 675 mg/dL (70-99); Potassium, Blood 3.4 mmol/L (3.5-5.5); Sodium, Blood 126 mmol/L (136-145); Total Protein, Blood 7.6 g/dL (6.4-8.2)
[2024-06-21] MEDS ORDERED: Insulin Regular 100 Unit/ML 1ML Dose IV ONE (15:45)
[2024-06-21] MEDS ORDERED: NS 1,000 ML IV SCH ×2 (15:50→17:30)
[2024-06-21] MEDS ORDERED: Potassium Chloride 40 MEQ in NS 250 ML IV ONE (16:45)
[2024-06-21] MEDS ORDERED: ChlordiazePOXIDE 25 MG Cap PO PRN ×2 (17:30)
[2024-06-21] MEDS ORDERED: LORazepam 2 MG/ML 1ML Injection IV PRN ×2 (17:35)
[2024-06-21] MEDS ORDERED: FLU VACC TS2024-25(6MOS UP)/PF 45 MCG/0.5 ML SYRINGE IM SCH (17:35)
[2024-06-21] MEDS ORDERED: Insulin Human Regular 100 UNIT in NS 100 ML IV SCH (17:40)
[2024-06-21 17:49] LABS: Glucose, Blood 527 mg/dL (70-99)
[2024-06-21] MEDS ORDERED: QUEtiapine Fumarate 25 MG Tab PO SCH (21:00)
[2024-06-21] MEDS ORDERED: Potassium Chl 10MEQ/Water100ML 100 ML IV SCH (21:00)
[2024-06-21] MEDS ORDERED: LevETIRAcetam 500 MG Tab PO SCH (21:00)
[2024-06-21 21:29] LABS: Base Excess Venous 1.9 mmol/L; Bicarbonate Venous 27.2 mmol/L (24.0-30.0); PCO2 Venous 20.5 mmHg (38-42); pH Blood Venous 7.65 (7.34-7.37)
[2024-06-21 21:53] LABS: Bun/Creatinine Ratio 22.7 (12.0-20.0); Calcium, Blood 9.1 mg/dL (8.5-10.1); Creatinine, Blood 0.48 mg/dL (0.40-1.00); Magnesium, Blood 1.6 mg/dL (1.6-2.4); Phosphorus, Blood 1.5 mg/dL (2.5-4.9); Potassium, Blood 3.5 mmol/L (3.5-5.5)
[2024-06-21 22:14] LABS: Source, Urine Straight Cath
[2024-06-21 22:23] LABS: Appearance, Urine Hazy (Clear); Bilirubin, Urine Neg (Neg); Blood, Urine 5+ (Neg); Glucose Qualitative, Urine 4+ (Neg); Ketones, Urine Neg (Neg); Leukocyte Esterase, Urine 2+ (Neg); Nitrite, Urine Neg (Neg); Protein, Urine 2+ (Neg); Specific Gravity, Urine 1.015 (1.003-1.022); Urobilinogen, Urine NORM (Normal)
[2024-06-21] MEDS ORDERED: D5W-1/2NS 1,000 ML IV SCH (22:25)
[2024-06-21] MEDS ORDERED: Sodium Phosphate 20 MM in Dextrose 5% 500 ML IV ONE (22:25)
[2024-06-21 22:34] LABS: U Amphetamine Screen DETECTED; U Barbituate Screen Not Detected; U Benzodiazapine Screen Not Detected; U Buprenorphine Screen Not Detected; U Cannabinoids Screen Not Detected; U Cocaine Screen Not Detected; U Methadone Screen Not Detected; U Methamphetamine Screen DETECTED; U Opiates Screen Not Detected; U Oxycodone Screen Not Detected; U Phencyclidine Screen Not Detected
[2024-06-21 22:35] LABS: Color, Urine Pale Yellow (P-Yellow)
[2024-06-21 22:37] LABS: Bacteria Many /hpf; Red Blood Cells, Urine 50-100 /hpf (0-2); Squamous Epithelial Cells Few /hpf (Few)
[2024-06-22] VITALS (26 sets, daily range): BP systolic 82–99; BP diastolic 60–75
[2024-06-22] MEDS ORDERED: Potassium Chl 10MEQ/Water100ML 100 ML IV SCH (01:00)
[2024-06-22 01:36] LABS: Base Excess Venous 2.2 mmol/L; Bicarbonate Venous 26.5 mmol/L (24.0-30.0); PCO2 Venous 32.4 mmHg (38-42)
[2024-06-22 02:17] LABS: Bun/Creatinine Ratio 23.5 (12.0-20.0); Calcium, Blood 8.2 mg/dL (8.5-10.1); Creatinine, Blood 0.43 mg/dL (0.40-1.00); Potassium, Blood 3.8 mmol/L (3.5-5.5)
[2024-06-22] MEDS ORDERED: Potassium Chloride 40 MEQ in NS 250 ML IV ONE (03:00)
[2024-06-22] MEDS ORDERED: Levothyroxine Sodium 0.112 MG Tab PO SCH (06:00)
[2024-06-22 06:15] LABS: Base Excess Venous 1.9 mmol/L; PCO2 Venous 39.1 mmHg (38-42); pH Blood Venous 7.43 (7.34-7.37)
[2024-06-22] MEDS ORDERED: Insulin Glargine-Yfgn 100 Unit/mL 3 ML SYR SC ONE (06:25)
--- NOTE | 2024-06-22 06:25 | NUR ---
SHIFT SUMMARY: PT WAS AN ER ADMIT AT THE START OF SHIFT FOR [facility]; BROUGHT UP TO THE UNIT AROUND 2032. PT A&X 2, COOPERATIVE WITH CARE, EMOTIONAL AND AT TIMES YELLING AND CURSING AT STAFF. PT REDIRECTABLE. CURRENTLY ON RA, LUNGS CLEAR T/O. SR ON MONITOR WITH HR 70'S, SOFT BP WITH SBP 80'S, MAP 65<. DENIES CHEST PAIN/PRESSURE OR SOB AT THIS TIME. PT WAS ABLE TO PIVOT TRANSFER TO BEDSIDE COMMODE WITH SBA; VOIDED 1400 MLS. PT ABLE TO RAY, THOUGHT IS PAINFUL AND WILL YELL OUT AT TIMES IN PAIN. BLE WERE EDEMATOUS 2-3 +, REDDNESS AND DRYNESS NOTED. PT RATES PAIN IN BLE TO BE A 5/10. ATTEMPTED TO ELEVATED BLE BUT PT REFUSED. INSULIN GTT PLACED ON STANDBY THIS MORNIGN FOR CBG OF 94; KAVITHA NOTIFIED AND PLANS FOR INSULIN GTT TO REMAIN OFF AND TO GIVE 10 UNITS OF GLARGINE NOW, START PT ON DIET AND ATTEMPT TO BRIDGE TO SUBQ INSULIN. D5 1/2 NS @ 150 MLS/HR TO CONTINUE UNTIL PT EATS BREAKFAST. PG TO NAILA THAT IS PATENT AND INFUSING; PIV TO RAC THAT IS PATENT AND SALINE LOCKED. BED LOWERED, CALL LIGHT IN REACH, WILL REPORT OFF TO ONCOMING RN.
[2024-06-22 07:51] LABS: Bun/Creatinine Ratio 20.9 (12.0-20.0); Calcium, Blood 7.9 mg/dL (8.5-10.1); Creatinine, Blood 0.43 mg/dL (0.40-1.00); Potassium, Blood 4.4 mmol/L (3.5-5.5)
[2024-06-22] MEDS ORDERED: Enoxaparin 40 MG/0.4 ML SYR SC SCH (09:00)
[2024-06-22] MEDS ORDERED: Folic Acid 1 MG in NS 50 ML IV SCH (09:00)
[2024-06-22] MEDS ORDERED: Thiamine HCl 100 MG in NS 50 ML IV SCH (09:00)
[2024-06-22 09:23] LABS: Base Excess Venous 0.2 mmol/L; Bicarbonate Venous 24.7 mmol/L (24.0-30.0); PCO2 Venous 35.6 mmHg (38-42); pH Blood Venous 7.44 (7.34-7.37)
[2024-06-22 09:46] LABS: Hematocrit 24.6 % (33.0-51.0); Hemoglobin 8.6 g/dL (11.5-16.0); Mean Corpuscular Volume 89 fL (80-100); NRBC ABSOLUTE 0.02 K/mm3 (0.00-0.02); NRBC Auto 0.2 /100 WBC (0.0-0.2); RDW Coefficient Variation 16.9 % (11.7-14.2); RDW Standard Deviation 54.4 fL (35.1-46.3); Red Blood Cell Count 2.77 M/mm3 (3.80-5.20); White Blood Cell Count 8.54 K/mm3 (4.00-11.30)
[2024-06-22 09:51] LABS: Bun/Creatinine Ratio 18.8 (12.0-20.0); Calcium, Blood 7.7 mg/dL (8.5-10.1); Creatinine, Blood 0.48 mg/dL (0.40-1.00); Potassium, Blood 4.1 mmol/L (3.5-5.5)
[2024-06-22 09:55] LABS: BASOPHILS ABSOLUTE MAN 0.08 K/mm3 (0.00-0.23); BASOPHILS PERCENT MAN 1 % (0-2); EOSINOPHILS PERCENT MAN 0 % (0-6); LYMPHOCYTES ABSOLUTE MAN 4.01 K/mm3 (0.84-5.20); LYMPHOCYTES PERCENT MAN 47 % (21-46); MONOCYTES ABSOLUTE MAN 0.17 K/mm3 (0.16-1.47); MONOCYTES PERCENT MAN 2 % (4-13); NEUTROPHILS ABSOLUTE MAN 4.27 K/mm3 (1.96-9.15); SEG NEUTROPHILS PERCENT MAN 50 % (41-73); TOTAL CELLS COUNTED 100
[2024-06-22 09:58] LABS: Mean Platelet Volume 8.9 fL (9.1-12.4); Platelet Count 433 K/mm3 (150-400)
[2024-06-22] MEDS ORDERED: Insulin Human Lispro 100 Units/ML 3ML Syringe SC SCH (12:10)
[2024-06-22] MEDS ORDERED: MULVITB PO (14:15)
--- NOTE | 2024-06-22 15:49 | NUR ---
DISCHARGE SUMMARY PT A&OX4, RESPONDING APPROPRIATLY. BP STABLE, ON ROOM AIR SATS IN THE 90'S, DENIES CP/PRESSURE/SOB. ABLE TO AMBULATE AROUND ROOM INDEPENDENTLY. DISCHARGE INSTRUCTIONS DISCUSSED, ALL QUESTIONS ADDRESSED. ALL IV'S REMOVED AND DRESSED WITH GAUZE AND COBAN. PT WAS TAKEN OUT TO PARTNERS CAR VIA WHEELCHAIR WITH ALL BELONGINGS BY MANAGER VOICE.
== END 2024-06-22 15:07 | disposition home or self-care (01) ==
LOC: ER 11:36 → ERHOLD 17:28 → ICUE 17:28 → ERHOLD 17:29 → ICUE 20:28 → ERHOLD 20:28 → ICUE 06-22 12:22
PROVIDERS: Emergency Medicine; ADMIT Family Medicine
DX: E11.00 Type 2 diabetes mellitus with hyperosmolarity without nonketotic hyperglycemic-hyperosmolar coma (NKHHC) (principal); E87.1 Hypo-osmolality and hyponatremia; E87.70 Fluid overload, unspecified; E87.6 Hypokalemia; E87.3 Alkalosis; N39.0 Urinary tract infection, site not specified; F20.9 Schizophrenia, unspecified; G40.909 Epilepsy, unspecified, not intractable, without status epilepticus; E03.9 Hypothyroidism, unspecified; R74.01 Elevation of levels of liver transaminase levels; I73.81 Erythromelalgia; E88.09 Other disorders of plasma-protein metabolism, not elsewhere classified; F17.210 Nicotine dependence, cigarettes, uncomplicated; F15.10 Other stimulant abuse, uncomplicated; F10.10 Alcohol abuse, uncomplicated; Z91.148 Patient's other noncompliance with medication regimen for other reason; Z79.4 Long term (current) use of insulin; Z79.84 Long term (current) use of oral hypoglycemic drugs; Z79.890 Hormone replacement therapy; Z79.899 Other long term (current) drug therapy; Z88.8 Allergy status to other drugs, medicaments and biological substances
CPT/HCPCS: 36415; 71260; 76705; 80048; 80053; 80320; 81001; 82010; 82803; 82947; 83735; 83880; 84100; 84145; 84703; 85025; 85379; 87077; 87086; 87186; 96361; 96365-59; 96372; 96375; 99285-25; A9270; C1751; G0378; J1650; J1815; J1885; J3411; J3480; J7030; J7042; J7050; J7060; Q9967

== ENCOUNTER 2024-07-11 18:05 | Emergency (ER) | payer OTHER ==
[~2024-07-11] VITALS: Ht 157.5 cm; Wt 46.3 kg
[~2024-07-11 18:05] MED LIST changes: -IRON FOLATE PL1 EACH PO
[2024-07-11 19:17] LABS: Base Excess Venous 2.3 mmol/L; Bicarbonate Venous 25.4 mmol/L (24.0-30.0); PCO2 Venous 48.5 mmHg (38-42); pH Blood Venous 7.36 (7.34-7.37)
[2024-07-11] MEDS ORDERED: NS 1,000 ML IV SCH (21:40)
[2024-07-11 21:57] LABS: BASOPHILS ABSOLUTE AUTO 0.06 K/mm3 (0.00-0.23); BASOPHILS PERCENT AUTO 1 % (0-2); EOSINOPHILS PERCENT AUTO 1 % (0-6); Hematocrit 28.5 % (33.0-51.0); Hemoglobin 9.5 g/dL (11.5-16.0); IMMATURE GRAN ABSOLUTE AUTO 0.04 K/mm3 (0.00-0.10); IMMATURE GRAN PERCENT AUTO 0 % (0-1); LYMPHOCYTES ABSOLUTE AUTO 2.43 K/mm3 (0.84-5.20); LYMPHOCYTES PERCENT AUTO 21 % (21-46); MONOCYTES ABSOLUTE AUTO 0.27 K/mm3 (0.16-1.47); MONOCYTES PERCENT AUTO 2 % (4-13); Mean Corpuscular HGB Conc 33.3 g/dL (31.5-36.5); Mean Corpuscular Volume 93 fL (80-100); Mean Platelet Volume 8.7 fL (9.1-12.4); NEUTROPHILS ABSOLUTE AUTO 8.79 K/mm3 (1.96-9.15); NEUTROPHILS PERCENT AUTO 75 % (41-73); Platelet Count 386 K/mm3 (150-400); RDW Coefficient Variation 15.8 % (11.7-14.2); Red Blood Cell Count 3.06 M/mm3 (3.80-5.20); White Blood Cell Count 11.69 K/mm3 (4.00-11.30)
[2024-07-11 22:07] LABS: CORONAVIRUS COVID-19 AG Negative (NEGATIVE); INFLUENZA A AG Negative (NEGATIVE); INFLUENZA B AG Negative (NEGATIVE)
[2024-07-11 22:26] LABS: Beta-hydroxybutyrate 18.1 mg/dL (0.2-2.8); Bun/Creatinine Ratio 24.7 (12.0-20.0); Calcium, Blood 8.8 mg/dL (8.5-10.1); Creatinine, Blood 0.49 mg/dL (0.40-1.00); Potassium, Blood 3.8 mmol/L (3.5-5.5)
[2024-07-11] MEDS ORDERED: IRON FOLATE PL1 EACH PO (23:08)
[2024-07-11 23:41] VITALS: BP 119/83
== END 2024-07-11 23:40 | disposition home or self-care (01) ==
LOC: ER 18:05
PROVIDERS: Emergency Medicine; Physician Assistant; Student in an Organized Health Care Education/Training Program
DX: E11.65 Type 2 diabetes mellitus with hyperglycemia (principal); D50.9 Iron deficiency anemia, unspecified; E86.0 Dehydration; E03.9 Hypothyroidism, unspecified; F17.210 Nicotine dependence, cigarettes, uncomplicated; Z88.8 Allergy status to other drugs, medicaments and biological substances; Z79.84 Long term (current) use of oral hypoglycemic drugs; Z79.4 Long term (current) use of insulin; Z79.899 Other long term (current) drug therapy
CPT/HCPCS: 80048; 80053; 82010; 82803; 82947; 83036; 83735; 85025; 87428-QW; 96360; 99284-25; J7030

== ENCOUNTER → 2024-07-11 | Outpatient (CLI) | payer OTHER ==
[~2024-07-11] MED LIST changes: +IRON FOLATE PL1 EACH PO; +MULVITB PO
[2024-07-11 16:14] LABS: BASOPHILS ABSOLUTE AUTO 0.07 K/mm3 (0.00-0.23); BASOPHILS PERCENT AUTO 1 % (0-2); EOSINOPHILS ABSOLUTE AUTO 0.08 K/mm3 (0.00-0.68); EOSINOPHILS PERCENT AUTO 1 % (0-6); Hemoglobin 11.2 g/dL (11.5-16.0); IMMATURE GRAN ABSOLUTE AUTO 0.07 K/mm3 (0.00-0.10); IMMATURE GRAN PERCENT AUTO 1 % (0-1); LYMPHOCYTES ABSOLUTE AUTO 1.86 K/mm3 (0.84-5.20); LYMPHOCYTES PERCENT AUTO 13 % (21-46); MONOCYTES ABSOLUTE AUTO 0.39 K/mm3 (0.16-1.47); MONOCYTES PERCENT AUTO 3 % (4-13); Mean Corpuscular HGB 31.2 pg (26.0-34.0); Mean Corpuscular HGB Conc 32.9 g/dL (31.5-36.5); Mean Corpuscular Volume 95 fL (80-100); Mean Platelet Volume 8.9 fL (9.1-12.4); NEUTROPHILS ABSOLUTE AUTO 11.52 K/mm3 (1.96-9.15); NEUTROPHILS PERCENT AUTO 82 % (41-73); Platelet Count 444 K/mm3 (150-400); RDW Coefficient Variation 15.8 % (11.7-14.2); RDW Standard Deviation 54.7 fL (35.1-46.3); Red Blood Cell Count 3.59 M/mm3 (3.80-5.20); White Blood Cell Count 13.99 K/mm3 (4.00-11.30)
[2024-07-11 16:22] LABS: Alanine Aminotransfer (ALT/SGP 56 U/L (12-78); Albumin, Blood 3.9 g/dL (3.4-5.0); Albumin/Globulin Ratio 0.9 (0.8-1.8); Alk Phos 269 U/L (40-126); Anion Gap 14 mmol/L (3-11); Aspartate Aminotrans (AST/SGOT 35 U/L (12-37); Bilirubin, Total 0.3 mg/dL (0.1-1.0); Blood Urea Nitrogen 14 mg/dL (8-24); Bun/Creatinine Ratio 13.2 (12.0-20.0); CO2, Blood 29 mmol/L (21-32); Calcium, Blood 9.1 mg/dL (8.5-10.1); Chloride, Blood 87 mmol/L (98-108); Creatinine, Blood 1.06 mg/dL (0.40-1.00); Globulin, Blood 4.4 g/dL (2.2-4.0); Glomerular Filtration Rate 70 (60-); Magnesium, Blood 1.8 mg/dL (1.6-2.4); Potassium, Blood 4.5 mmol/L (3.5-5.5); Sodium, Blood 125 mmol/L (136-145); Total Protein, Blood 8.3 g/dL (6.4-8.2)
[2024-07-11 16:40] LABS: Glucose, Blood >750 mg/dL (70-99)
== END ==
LOC: LAB 16:08 → LAB SHORT 16:08
PROVIDERS: Chiropractor
DX: R73.9 Hyperglycemia, unspecified (principal)
CPT/HCPCS: 80053; 83036; 83735; 85025

== ENCOUNTER 2024-07-30 13:55 | Emergency (ER) | payer OTHER ==
[~2024-07-30] VITALS: Ht 157.5 cm; Wt 48.5 kg
[~2024-07-30 13:55] MED LIST changes: +IRON FOLATE PL1 EACH PO
[2024-07-30 15:34] LABS: BASOPHILS ABSOLUTE AUTO 0.08 K/mm3 (0.00-0.23); BASOPHILS PERCENT AUTO 0 % (0-2); EOSINOPHILS ABSOLUTE AUTO 0.01 K/mm3 (0.00-0.68); EOSINOPHILS PERCENT AUTO 0 % (0-6); Hematocrit 38.1 % (33.0-51.0); Hemoglobin 12.8 g/dL (11.5-16.0); IMMATURE GRAN ABSOLUTE AUTO 0.11 K/mm3 (0.00-0.10); IMMATURE GRAN PERCENT AUTO 0 % (0-1); LYMPHOCYTES ABSOLUTE AUTO 1.14 K/mm3 (0.84-5.20); LYMPHOCYTES PERCENT AUTO 4 % (21-46); MONOCYTES ABSOLUTE AUTO 0.09 K/mm3 (0.16-1.47); MONOCYTES PERCENT AUTO 0 % (4-13); Mean Corpuscular HGB 30.4 pg (26.0-34.0); Mean Corpuscular HGB Conc 33.6 g/dL (31.5-36.5); Mean Corpuscular Volume 91 fL (80-100); Mean Platelet Volume 9.2 fL (9.1-12.4); NEUTROPHILS ABSOLUTE AUTO 24.95 K/mm3 (1.96-9.15); NEUTROPHILS PERCENT AUTO 95 % (41-73); Platelet Count 452 K/mm3 (150-400); RDW Coefficient Variation 13.7 % (11.7-14.2); RDW Standard Deviation 45.4 fL (35.1-46.3); Red Blood Cell Count 4.21 M/mm3 (3.80-5.20); White Blood Cell Count 26.38 K/mm3 (4.00-11.30)
[2024-07-30 16:07] LABS: Alanine Aminotransfer (ALT/SGP 28 U/L (12-78); Albumin, Blood 4.4 g/dL (3.4-5.0); Albumin/Globulin Ratio 0.9 (0.8-1.8); Alk Phos 189 U/L (50-136); Anion Gap 13 mmol/L (3-11); Aspartate Aminotrans (AST/SGOT 41 U/L (12-37); Beta HCG, Quantitative, Serum <1 mIU/mL (0-3); Bilirubin, Total 0.6 mg/dL (0.1-1.0); Blood Urea Nitrogen 17 mg/dL (8-24); Bun/Creatinine Ratio 29.5 (12.0-20.0); CO2, Blood 26 mmol/L (21-32); Calcium, Blood 9.9 mg/dL (8.5-10.1); Chloride, Blood 93 mmol/L (98-108); Creatinine, Blood 0.58 mg/dL (0.40-1.00); Globulin, Blood 4.9 g/dL (2.2-4.0); Glomerular Filtration Rate 120 (60-); Glucose, Blood 558 mg/dL (70-99); Potassium, Blood 4.1 mmol/L (3.5-5.5); Sodium, Blood 128 mmol/L (136-145); Total Protein, Blood 9.3 g/dL (6.4-8.2)
[2024-07-30 16:54] LABS: Source, Urine Clean Catch
[2024-07-30 17:03] LABS: Appearance, Urine Hazy (Clear); Bilirubin, Urine Neg (Neg); Blood, Urine 2+ (Neg); Color, Urine Yellow (P-Yellow); Glucose Qualitative, Urine 4+ (Neg); Ketones, Urine Neg (Neg); Leukocyte Esterase, Urine 1+ (Neg); Nitrite, Urine Neg (Neg); Protein, Urine Neg (Neg); Specific Gravity, Urine 1.005 (1.003-1.022); Urobilinogen, Urine NORM (Normal)
[2024-07-30 17:12] LABS: Bacteria Mod /hpf; Squamous Epithelial Cells Few /hpf (Few)
[2024-07-30 19:29] LABS: Base Excess Venous -1.2 mmol/L; Bicarbonate Venous 22.8 mmol/L (24.0-30.0); PCO2 Venous 46.6 mmHg (38-42); pH Blood Venous 7.33 (7.34-7.37)
[2024-07-30] MEDS ORDERED: Trimethoprim/Sulfamethoxazole DS Tab PO ONE (20:30)
[2024-07-30] MEDS ORDERED: NS 1,000 ML IV SCH (20:30)
[2024-07-30] MEDS ORDERED: Insulin Glargine-Yfgn 100 Unit/mL 3 ML SYR SC ONE (20:35)
[2024-07-30] MEDS ORDERED: SULTRIDS PO (20:37)
[2024-07-30 21:00] VITALS: BP 109/68
== END 2024-07-30 21:22 | disposition home or self-care (01) ==
LOC: ER 13:55
PROVIDERS: Student in an Organized Health Care Education/Training Program
DX: N12 Tubulo-interstitial nephritis, not specified as acute or chronic (principal); E86.0 Dehydration; D72.829 Elevated white blood cell count, unspecified; E11.65 Type 2 diabetes mellitus with hyperglycemia; F17.210 Nicotine dependence, cigarettes, uncomplicated; Z88.8 Allergy status to other drugs, medicaments and biological substances; Z79.84 Long term (current) use of oral hypoglycemic drugs; Z79.4 Long term (current) use of insulin; Z79.899 Other long term (current) drug therapy; Z79.890 Hormone replacement therapy
CPT/HCPCS: 74177; 80053; 81001; 82010; 82803; 83690; 84702; 85025; 87077; 87086; 87186; 99284-25; A9270; J1815; J7030; Q9967

== ENCOUNTER 2024-09-12 17:27 | Emergency (ER) | payer OTHER ==
[~2024-09-12] VITALS: Ht 157.5 cm; Wt 45.4 kg
[2024-09-12 17:49] VITALS: BP 137/95
[2024-09-12 18:10] LABS: Source, Urine Clean Catch
[2024-09-12 18:26] LABS: BASOPHILS ABSOLUTE AUTO 0.04 K/mm3 (0.00-0.23); BASOPHILS PERCENT AUTO 0 % (0-2); EOSINOPHILS ABSOLUTE AUTO 0.06 K/mm3 (0.00-0.68); EOSINOPHILS PERCENT AUTO 1 % (0-6); Hematocrit 34.9 % (33.0-51.0); Hemoglobin 11.5 g/dL (11.5-16.0); IMMATURE GRAN ABSOLUTE AUTO 0.02 K/mm3 (0.00-0.10); IMMATURE GRAN PERCENT AUTO 0 % (0-1); LYMPHOCYTES ABSOLUTE AUTO 3.42 K/mm3 (0.84-5.20); LYMPHOCYTES PERCENT AUTO 27 % (21-46); MONOCYTES ABSOLUTE AUTO 0.27 K/mm3 (0.16-1.47); MONOCYTES PERCENT AUTO 2 % (4-13); Mean Corpuscular HGB 27.4 pg (26.0-34.0); Mean Corpuscular Volume 83 fL (80-100); Mean Platelet Volume 8.5 fL (9.1-12.4); NEUTROPHILS ABSOLUTE AUTO 8.79 K/mm3 (1.96-9.15); NEUTROPHILS PERCENT AUTO 70 % (41-73); Platelet Count 450 K/mm3 (150-400); RDW Coefficient Variation 14.3 % (11.7-14.2); RDW Standard Deviation 43.5 fL (35.1-46.3); Red Blood Cell Count 4.19 M/mm3 (3.80-5.20)
[2024-09-12 18:28] LABS: Appearance, Urine Clear (Clear); Bilirubin, Urine Neg (Neg); Blood, Urine Neg (Neg); Color, Urine Yellow (P-Yellow); Glucose Qualitative, Urine 4+ (Neg); Ketones, Urine Neg (Neg); Leukocyte Esterase, Urine 1+ (Neg); Nitrite, Urine Pos (Neg); Protein, Urine Neg (Neg); Specific Gravity, Urine 1.015 (1.003-1.022); Urobilinogen, Urine NORM (Normal); pH, Urine 6.5 (5.0-8.0)
[2024-09-12 18:40] LABS: Bacteria Many /hpf; Red Blood Cells, Urine 0-2 /hpf (0-2); Squamous Epithelial Cells Few /hpf (Few)
[2024-09-12 18:47] LABS: Albumin, Blood 3.8 g/dL (3.4-5.0); Bilirubin, Total 0.2 mg/dL (0.1-1.0); Bun/Creatinine Ratio 26.8 (12.0-20.0); Calcium, Blood 9.6 mg/dL (8.5-10.1); Creatinine, Blood 0.52 mg/dL (0.40-1.00); Potassium, Blood 3.9 mmol/L (3.5-5.5); Total Protein, Blood 7.8 g/dL (6.4-8.2)
[2024-09-12] MEDS ORDERED: Ciprofloxacin 500 MG Tab PO ONE (21:15)
[2024-09-12] MEDS ORDERED: Phenazopyridine HCl 100 MG Tab PO ONE (21:15)
[2024-09-12] MEDS ORDERED: Pyridium100 MG PO (21:39)
[2024-09-12] MEDS ORDERED: CIPR250 PO (21:39)
== END 2024-09-12 21:42 | disposition home or self-care (01) ==
LOC: ER 17:27
PROVIDERS: Student in an Organized Health Care Education/Training Program
DX: N39.0 Urinary tract infection, site not specified (principal); F17.210 Nicotine dependence, cigarettes, uncomplicated; E11.9 Type 2 diabetes mellitus without complications; Z88.8 Allergy status to other drugs, medicaments and biological substances; Z88.1 Allergy status to other antibiotic agents; Z79.899 Other long term (current) drug therapy; Z79.84 Long term (current) use of oral hypoglycemic drugs; Z79.890 Hormone replacement therapy; Z79.4 Long term (current) use of insulin; Z79.2 Long term (current) use of antibiotics
CPT/HCPCS: 80053; 81001; 81025; 85025; 87077; 87086; 87186; 99283; A9270

== ENCOUNTER → 2024-09-17 | Outpatient (CLI) | payer OTHER ==
[~2024-09-17] MED LIST changes: +CIPR250 PO; +Pyridium100 MG PO
[2024-09-17 20:27] LABS: Bacterial Vaginosis PCR Positive (NEGATIVE); Candida Group, PCR DETECTED (NOT DETECT); Candida glabrata-krusei, PCR DETECTED (NOT DETECT)
== END ==
LOC: LAB SHORT 18:29 → LAB 18:29
PROVIDERS: Nurse Practitioner Family
DX: R10.2 Pelvic and perineal pain (principal)
CPT/HCPCS: 81515

== ENCOUNTER 2024-10-09 14:22 | Observation (INO) | payer OTHER ==
[2024-10-09 17:13] LABS: BASOPHILS ABSOLUTE AUTO 0.04 K/mm3 (0.00-0.23); BASOPHILS PERCENT AUTO 0 % (0-2); EOSINOPHILS ABSOLUTE AUTO 0.02 K/mm3 (0.00-0.68); EOSINOPHILS PERCENT AUTO 0 % (0-6); Hematocrit 38.7 % (33.0-51.0); Hemoglobin 12.7 g/dL (11.5-16.0); IMMATURE GRAN ABSOLUTE AUTO 0.03 K/mm3 (0.00-0.10); IMMATURE GRAN PERCENT AUTO 0 % (0-1); LYMPHOCYTES ABSOLUTE AUTO 2.65 K/mm3 (0.84-5.20); LYMPHOCYTES PERCENT AUTO 23 % (21-46); MONOCYTES ABSOLUTE AUTO 0.37 K/mm3 (0.16-1.47); MONOCYTES PERCENT AUTO 3 % (4-13); Mean Corpuscular HGB 25.6 pg (26.0-34.0); Mean Corpuscular HGB Conc 32.8 g/dL (31.5-36.5); Mean Corpuscular Volume 78 fL (80-100); Mean Platelet Volume 8.9 fL (9.1-12.4); NEUTROPHILS ABSOLUTE AUTO 8.56 K/mm3 (1.96-9.15); NEUTROPHILS PERCENT AUTO 73 % (41-73); Platelet Count 421 K/mm3 (150-400); RDW Coefficient Variation 16.5 % (11.7-14.2); RDW Standard Deviation 45.9 fL (35.1-46.3); Red Blood Cell Count 4.96 M/mm3 (3.80-5.20); White Blood Cell Count 11.67 K/mm3 (4.00-11.30)
[2024-10-09 18:04] LABS: Albumin, Blood 4.1 g/dL (3.4-5.0); Bilirubin, Total 0.2 mg/dL (0.1-1.0); Bun/Creatinine Ratio 26.1 (12.0-20.0); Calcium, Blood 9.9 mg/dL (8.5-10.1); Creatinine, Blood 0.58 mg/dL (0.40-1.00); Globulin, Blood 4.1 g/dL (2.2-4.0); Potassium, Blood 3.8 mmol/L (3.5-5.5); Total Protein, Blood 8.2 g/dL (6.4-8.2)
[2024-10-09] MEDS ORDERED: Lactated Ringer's 1,000 ML IV SCH ×2 (18:25→19:05)
[2024-10-09] MEDS ORDERED: Insulin Human Regular 100 UNIT in NS 100 ML IV SCH (18:30)
[2024-10-09 18:58] LABS: Source, Urine Clean Catch
[2024-10-09 19:07] LABS: Appearance, Urine Clear (Clear); Bilirubin, Urine Neg (Neg); Blood, Urine Neg (Neg); Glucose Qualitative, Urine 4+ (Neg); Ketones, Urine Neg (Neg); Leukocyte Esterase, Urine Neg (Neg); Nitrite, Urine Neg (Neg); Protein, Urine Neg (Neg); Urobilinogen, Urine NORM (Normal)
[2024-10-09 19:21] LABS: Color, Urine Pale Yellow (P-Yellow)
[2024-10-09 19:45] LABS: Beta-hydroxybutyrate 3.7 mg/dL (0.2-2.8); Magnesium, Blood 1.7 mg/dL (1.6-2.4); Phosphorus, Blood 3.4 mg/dL (2.5-4.9)
[2024-10-09 20:11] LABS: Base Excess Venous 3.6 mmol/L; Bicarbonate Venous 26.6 mmol/L (24.0-30.0); PCO2 Venous 45.3 mmHg (38-42); pH Blood Venous 7.41 (7.34-7.37)
[2024-10-09] MEDS ORDERED: CefTRIAXone Sodium 2,000 MG in NS 100 ML IV ONE (20:15)
[2024-10-09] MEDS ORDERED: NS KCl 20mEq 1,000 ML IV SCH (20:30)
[2024-10-09 20:54] LABS: Glucose, Blood 540 mg/dL (70-99)
[2024-10-09] MEDS ORDERED: NS 1,000 ML IV ONE (22:35)
[2024-10-09] MEDS ORDERED: Ondansetron HCl 2 MG / ML 2ML Vial IV PRN (22:35)
[2024-10-09 23:00] LABS: Bun/Creatinine Ratio 23.5 (12.0-20.0); Calcium, Blood 8.5 mg/dL (8.5-10.1); Creatinine, Blood 0.47 mg/dL (0.40-1.00); Potassium, Blood 3.2 mmol/L (3.5-5.5)
[2024-10-09] MEDS ORDERED: Enoxaparin 40 MG/0.4 ML SYR SC SCH (23:00)
[2024-10-09] MEDS ORDERED: Insulin Glargine-Yfgn 100 Unit/mL 3 ML SYR SC SCH (23:00)
[2024-10-10 02:30] VITALS: BP 140/98
[2024-10-10 02:41] LABS: U Amphetamine Screen Not Detected; U Barbituate Screen Not Detected; U Benzodiazapine Screen Not Detected; U Buprenorphine Screen Not Detected; U Cannabinoids Screen Not Detected; U Cocaine Screen Not Detected; U Methadone Screen Not Detected; U Methamphetamine Screen Not Detected; U Opiates Screen Not Detected; U Oxycodone Screen Not Detected; U Phencyclidine Screen Not Detected
[2024-10-10 05:40] LABS: BASOPHILS ABSOLUTE AUTO 0.04 K/mm3 (0.00-0.23); BASOPHILS PERCENT AUTO 0 % (0-2); EOSINOPHILS ABSOLUTE AUTO 0.04 K/mm3 (0.00-0.68); EOSINOPHILS PERCENT AUTO 0 % (0-6); Hematocrit 37.5 % (33.0-51.0); Hemoglobin 12.3 g/dL (11.5-16.0); IMMATURE GRAN ABSOLUTE AUTO 0.04 K/mm3 (0.00-0.10); IMMATURE GRAN PERCENT AUTO 0 % (0-1); LYMPHOCYTES ABSOLUTE AUTO 3.46 K/mm3 (0.84-5.20); LYMPHOCYTES PERCENT AUTO 36 % (21-46); MONOCYTES ABSOLUTE AUTO 0.33 K/mm3 (0.16-1.47); MONOCYTES PERCENT AUTO 3 % (4-13); Mean Corpuscular HGB 25.5 pg (26.0-34.0); Mean Corpuscular HGB Conc 32.8 g/dL (31.5-36.5); Mean Corpuscular Volume 78 fL (80-100); NEUTROPHILS ABSOLUTE AUTO 5.75 K/mm3 (1.96-9.15); NEUTROPHILS PERCENT AUTO 60 % (41-73); Platelet Count 401 K/mm3 (150-400); RDW Coefficient Variation 16.4 % (11.7-14.2); RDW Standard Deviation 45.6 fL (35.1-46.3); Red Blood Cell Count 4.83 M/mm3 (3.80-5.20); White Blood Cell Count 9.66 K/mm3 (4.00-11.30)
[2024-10-10 06:19] LABS: Free Thyroxine 0.22 ng/dL (0.70-1.60)
[2024-10-10 06:46] LABS: Albumin, Blood 3.4 g/dL (3.4-5.0); Albumin/Globulin Ratio 0.9 (0.8-1.8); Bilirubin, Total 0.2 mg/dL (0.1-1.0); Bun/Creatinine Ratio 24.7 (12.0-20.0); Calcium, Blood 8.9 mg/dL (8.5-10.1); Creatinine, Blood 0.41 mg/dL (0.40-1.00); Globulin, Blood 3.7 g/dL (2.2-4.0); Potassium, Blood 3.1 mmol/L (3.5-5.5); Total Protein, Blood 7.1 g/dL (6.4-8.2)
[2024-10-10] MEDS ORDERED: Potassium Chloride 20 MEQ TabCR PO ONE (07:00)
[2024-10-10 07:28] VITALS: BP 155/100
[2024-10-10] MEDS ORDERED: Insulin Human Lispro 100 Units/ML 3ML Syringe SC SCH (07:30)
--- NOTE | 2024-10-10 07:54 | NUR ---
SHIFT SUMMARY; AFTER ADMISSION, PATIENT SLEPT IN LONG INTERVALS. TELE SR 77. DID NOT REPORT ANY HALLUCINATIONS. IV INFUSING ALL NIGHT
[2024-10-10] MEDS ORDERED: Levothyroxine Sodium 0.137 MG Tab PO SCH (08:00)
[2024-10-10] MEDS ORDERED: Magnesium Sulf 2 GM/Water 50ML 50 ML IV ONE (08:25)
[2024-10-10] MEDS ORDERED: Levothyroxine Sodium 0.112 MG Tab PO SCH (09:00)
[2024-10-10] MEDS ORDERED: Nicotine 21 MG PATCH TOP SCH (09:00)
[2024-10-10] MEDS ORDERED: LevETIRAcetam 500 MG Tab PO SCH (09:00)
--- NOTE | 2024-10-10 09:07 | NUR ---
PT STARTED SHIFT BEING VERY ANXIOUS AND KEPT GETTING OUT OF BED. PT WANTED TO SMOKE NICOTINE PATCH WAS ORDERED BY DR ZUNIGA. PT WOULD NOT SETTLE DOWN AND DECIDED SHE WANTED TO LEAVE AMA. DOCTORS WITH DR ZUNIGA WENT AND TALKED WITH PT. PT DECIDED SHE WAS LEAVING AMA AND WALKED OUT OF ROOM AT 0849. PT WAS AOX4 AND ABLE TO AMBULATE ON HER OWN.
[2024-10-10] MEDS ORDERED: Misc. Capsule PO SCH (21:00)
== END 2024-10-10 08:49 | disposition left against medical advice (07) ==
LOC: ER 14:22 → MEDS 14:23 → ERHOLD 14:23 → MEDS 10-10 02:13
PROVIDERS: Physician Assistant; Student in an Organized Health Care Education/Training Program; ADMIT Internal Medicine
DX: F20.9 Schizophrenia, unspecified (principal); E11.65 Type 2 diabetes mellitus with hyperglycemia; E86.0 Dehydration; E87.6 Hypokalemia; E03.9 Hypothyroidism, unspecified; Z53.29 Procedure and treatment not carried out because of patient's decision for other reasons; F17.210 Nicotine dependence, cigarettes, uncomplicated; Z88.8 Allergy status to other drugs, medicaments and biological substances; Z79.84 Long term (current) use of oral hypoglycemic drugs; Z79.899 Other long term (current) drug therapy
CPT/HCPCS: 36415; 71046; 80048; 80053; 81003; 82010; 82803; 82947; 83036; 83605; 83735; 83880; 84100; 84439; 84443; 85025; 96361; 96365; 99285-25; A9270; G0378; J0696; J1815; J3480; J7120

== ENCOUNTER 2024-11-03 15:28 | Emergency (ER) | payer OTHER ==
[~2024-11-03] VITALS: Ht 157.5 cm; Wt 48.5 kg
[2024-11-03 15:43] VITALS: BP 113/96
[2024-11-03 17:25] LABS: Hemoglobin 12.7 g/dL (11.5-16.0); Mean Corpuscular HGB 26.3 pg (26.0-34.0); Mean Corpuscular HGB Conc 33.4 g/dL (31.5-36.5); Mean Corpuscular Volume 79 fL (80-100); RDW Coefficient Variation 21.2 % (11.7-14.2); RDW Standard Deviation 57.5 fL (35.1-46.3); Red Blood Cell Count 4.82 M/mm3 (3.80-5.20)
[2024-11-03 17:46] LABS: Source, Urine Clean Catch
[2024-11-03 17:53] LABS: BAND PERCENT MAN 4 % (0-8); BASOPHILS PERCENT MAN 1 % (0-2); EOSINOPHILS PERCENT MAN 0 % (0-6); LYMPHOCYTES PERCENT MAN 16 % (21-46); MONOCYTES PERCENT MAN 4 % (4-13); SEG NEUTROPHILS PERCENT MAN 75 % (41-73); TOTAL CELLS COUNTED 100
[2024-11-03 18:18] LABS: Appearance, Urine Clear (Clear); Bilirubin, Urine Neg (Neg); Blood, Urine Neg (Neg); Glucose Qualitative, Urine 4+ (Neg); Ketones, Urine Neg (Neg); Urobilinogen, Urine NORM (Normal)
[2024-11-03 18:28] LABS: Albumin, Blood 4.4 g/dL (3.4-5.0); Bilirubin, Total 0.3 mg/dL (0.1-1.0); Bun/Creatinine Ratio 19.7 (12.0-20.0); Calcium, Blood 10.6 mg/dL (8.5-10.1); Creatinine, Blood 0.56 mg/dL (0.40-1.00); Globulin, Blood 4.5 g/dL (2.2-4.0); Potassium, Blood 4.1 mmol/L (3.5-5.5); Total Protein, Blood 8.9 g/dL (6.4-8.2)
[2024-11-03 18:28] LABS: Leukocyte Esterase, Urine Neg (Neg); Nitrite, Urine Neg (Neg); Protein, Urine Neg (Neg)
[2024-11-03 18:32] LABS: Color, Urine Pale Yellow (P-Yellow)
[2024-11-03 18:58] LABS: Influenza A, PCR NEGATIVE (NEGATIVE); Influenza B, PCR NEGATIVE (NEGATIVE); Resp Syncytial Virus, PCR NEGATIVE (NEGATIVE); SARS-Cov-2 (COVID-19) PCR, MMC NEGATIVE (NEGATIVE)
== END 2024-11-03 19:31 | disposition home or self-care (01) ==
LOC: ER 15:28
PROVIDERS: Student in an Organized Health Care Education/Training Program
DX: E11.65 Type 2 diabetes mellitus with hyperglycemia (principal); E11.42 Type 2 diabetes mellitus with diabetic polyneuropathy; E87.0 Hyperosmolality and hypernatremia; E03.9 Hypothyroidism, unspecified; F17.210 Nicotine dependence, cigarettes, uncomplicated; Z88.8 Allergy status to other drugs, medicaments and biological substances; Z79.84 Long term (current) use of oral hypoglycemic drugs; Z79.890 Hormone replacement therapy; Z79.4 Long term (current) use of insulin; Z79.899 Other long term (current) drug therapy
CPT/HCPCS: 0241U; 71046; 80053; 81003; 85025; 99283-25

== ENCOUNTER → 2024-11-11 | Outpatient (CLI) | payer OTHER ==
[2024-11-13 22:40] LABS: SERUM, C-PEPTIDE 0.8 ng/mL (0.5-3.3)
[2024-11-14 09:36] LABS: ISLET CELL CYTOPLASMIC AB, IGG <1:4 (<1:4)
[2024-11-16 13:29] LABS: GLUTAMIC ACID DECARBOXYLASE AB 235.3 IU/mL (0.0-5.0)
== END ==
LOC: LAB SHORT 18:50 → LAB 18:50
PROVIDERS: Student in an Organized Health Care Education/Training Program
DX: R73.9 Hyperglycemia, unspecified (principal)
CPT/HCPCS: 84681; 86341

== ENCOUNTER 2024-11-26 10:05 | Emergency (ER) | payer OTHER ==
[~2024-11-26] VITALS: Ht 157.5 cm; Wt 44.0 kg
[2024-11-26] MEDS ORDERED: Ketorolac Tromethamine 15mg Vial IV ONE (10:35)
[2024-11-26] MEDS ORDERED: Ketorolac Tromethamine 15mg Vial IM ONE ×2 (10:35→13:25)
[2024-11-26 11:30] LABS: BASOPHILS ABSOLUTE AUTO 0.03 K/mm3 (0.00-0.23); BASOPHILS PERCENT AUTO 0 % (0-2); EOSINOPHILS ABSOLUTE AUTO 0.08 K/mm3 (0.00-0.68); EOSINOPHILS PERCENT AUTO 1 % (0-6); Hematocrit 39.3 % (33.0-51.0); Hemoglobin 12.6 g/dL (11.5-16.0); IMMATURE GRAN ABSOLUTE AUTO 0.02 K/mm3 (0.00-0.10); IMMATURE GRAN PERCENT AUTO 0 % (0-1); LYMPHOCYTES ABSOLUTE AUTO 2.85 K/mm3 (0.84-5.20); LYMPHOCYTES PERCENT AUTO 37 % (21-46); MONOCYTES PERCENT AUTO 7 % (4-13); Mean Corpuscular HGB 25.9 pg (26.0-34.0); Mean Corpuscular HGB Conc 32.1 g/dL (31.5-36.5); Mean Corpuscular Volume 81 fL (80-100); Mean Platelet Volume 8.8 fL (9.1-12.4); NEUTROPHILS ABSOLUTE AUTO 4.22 K/mm3 (1.96-9.15); NEUTROPHILS PERCENT AUTO 55 % (41-73); Platelet Count 421 K/mm3 (150-400); RDW Coefficient Variation 20.5 % (11.7-14.2); RDW Standard Deviation 59.3 fL (35.1-46.3); Red Blood Cell Count 4.87 M/mm3 (3.80-5.20)
[2024-11-26 11:52] LABS: Albumin, Blood 3.9 g/dL (3.4-5.0); Albumin/Globulin Ratio 1.1 (0.8-1.8); Bilirubin, Total 0.3 mg/dL (0.1-1.0); Calcium, Blood 9.2 mg/dL (8.5-10.1); Creatinine, Blood 0.46 mg/dL (0.40-1.00); Globulin, Blood 3.5 g/dL (2.2-4.0); Total Protein, Blood 7.4 g/dL (6.4-8.2)
[2024-11-26] MEDS ORDERED: Acetaminophen 500 MG Tab PO ONE (13:15)
[2024-11-26 13:44] VITALS: BP 145/92
== END 2024-11-26 13:44 | disposition home or self-care (01) ==
LOC: ER 10:05
PROVIDERS: Emergency Medicine
DX: R07.9 Chest pain, unspecified (principal); G89.29 Other chronic pain; E03.9 Hypothyroidism, unspecified; E11.9 Type 2 diabetes mellitus without complications; F17.210 Nicotine dependence, cigarettes, uncomplicated; Z88.8 Allergy status to other drugs, medicaments and biological substances; Z79.84 Long term (current) use of oral hypoglycemic drugs; Z79.890 Hormone replacement therapy; Z79.4 Long term (current) use of insulin; Z79.899 Other long term (current) drug therapy
CPT/HCPCS: 36415; 80053; 83690; 84484; 85025; 93005; 93010; 96372; 99285-25; A9270; J1885

== ENCOUNTER → 2024-12-28 | Outpatient (CLI) | payer OTHER ==
[2024-12-28 13:36] LABS: BASOPHILS ABSOLUTE AUTO 0.03 K/mm3 (0.00-0.23); BASOPHILS PERCENT AUTO 0 % (0-2); EOSINOPHILS ABSOLUTE AUTO 0.05 K/mm3 (0.00-0.68); EOSINOPHILS PERCENT AUTO 1 % (0-6); Hematocrit 40.6 % (33.0-51.0); Hemoglobin 13.3 g/dL (11.5-16.0); IMMATURE GRAN ABSOLUTE AUTO 0.05 K/mm3 (0.00-0.10); IMMATURE GRAN PERCENT AUTO 1 % (0-1); LYMPHOCYTES ABSOLUTE AUTO 2.63 K/mm3 (0.84-5.20); LYMPHOCYTES PERCENT AUTO 25 % (21-46); MONOCYTES ABSOLUTE AUTO 0.42 K/mm3 (0.16-1.47); MONOCYTES PERCENT AUTO 4 % (4-13); Mean Corpuscular HGB Conc 32.8 g/dL (31.5-36.5); Mean Corpuscular Volume 83 fL (80-100); NEUTROPHILS ABSOLUTE AUTO 7.21 K/mm3 (1.96-9.15); NEUTROPHILS PERCENT AUTO 69 % (41-73); NRBC ABSOLUTE 0.00 K/mm3 (0.00-0.02); NRBC Auto 0.0 /100 WBC (0.0-0.2); Platelet Count 386 K/mm3 (150-400); RDW Coefficient Variation 19.2 % (11.7-14.2); RDW Standard Deviation 57.7 fL (35.1-46.3)
[2024-12-28 13:48] LABS: Alanine Aminotransfer (ALT/SGP 19.0 U/L (12-78); Albumin, Blood 3.8 g/dL (3.4-5.0); Albumin/Globulin Ratio 1.1 (0.8-1.8); Anion Gap 20.0 mmol/L (3-11); Aspartate Aminotrans (AST/SGOT 15.0 U/L (12-37); Bilirubin, Total 0.2 mg/dL (0.1-1.0); Blood Urea Nitrogen 15.0 mg/dL (8-24); CO2, Blood 23.0 mmol/L (21-32); Calcium, Blood 9.6 mg/dL (8.5-10.1); Chloride, Blood 97.0 mmol/L (98-108); Creatinine, Blood 0.71 mg/dL (0.40-1.00); Globulin, Blood 3.5 g/dL (2.2-4.0); Glucose, Blood 157.0 mg/dL (70-99); Potassium, Blood 4.5 mmol/L (3.5-5.5); Sodium, Blood 135.0 mmol/L (136-145); Total Protein, Blood 7.3 g/dL (6.4-8.2)
== END | disposition home or self-care (01) ==
LOC: LAB SHORT 13:32
PROVIDERS: Emergency Medicine
DX: R07.9 Chest pain, unspecified (principal)
CPT/HCPCS: 80053; 83690; 85025

== ENCOUNTER 2025-04-28 16:01 | Emergency (ER) | payer OTHER ==
[~2025-04-28] VITALS: Ht 167.6 cm; Wt 52.2 kg
[2025-04-28 17:04] LABS: BASOPHILS ABSOLUTE AUTO 0.04 K/mm3 (0.00-0.23); BASOPHILS PERCENT AUTO 1 % (0-2); EOSINOPHILS ABSOLUTE AUTO 0.08 K/mm3 (0.00-0.68); EOSINOPHILS PERCENT AUTO 1 % (0-6); Hematocrit 37.1 % (33.0-51.0); Hemoglobin 12.5 g/dL (11.5-16.0); IMMATURE GRAN ABSOLUTE AUTO 0.02 K/mm3 (0.00-0.10); IMMATURE GRAN PERCENT AUTO 0 % (0-1); LYMPHOCYTES ABSOLUTE AUTO 2.19 K/mm3 (0.84-5.20); LYMPHOCYTES PERCENT AUTO 30 % (21-46); MONOCYTES ABSOLUTE AUTO 0.40 K/mm3 (0.16-1.47); MONOCYTES PERCENT AUTO 5 % (4-13); Mean Corpuscular HGB Conc 33.7 g/dL (31.5-36.5); Mean Corpuscular Volume 91 fL (80-100); NEUTROPHILS ABSOLUTE AUTO 4.69 K/mm3 (1.96-9.15); NEUTROPHILS PERCENT AUTO 63 % (41-73); NRBC ABSOLUTE 0.00 K/mm3 (0.00-0.02); NRBC Auto 0.0 /100 WBC (0.0-0.2); Platelet Count 295 K/mm3 (150-400); RDW Coefficient Variation 16.6 % (11.7-14.2); RDW Standard Deviation 55.4 fL (35.1-46.3)
[2025-04-28 17:30] LABS: Alanine Aminotransfer (ALT/SGP 266 U/L (12-78); Albumin, Blood 3.6 g/dL (3.4-5.0); Albumin/Globulin Ratio 1.0 (0.8-1.8); Anion Gap 7 mmol/L (3-11); Aspartate Aminotrans (AST/SGOT 306 U/L (12-37); Bilirubin, Total 0.3 mg/dL (0.1-1.0); Blood Urea Nitrogen 12 mg/dL (8-24); CO2, Blood 35 mmol/L (21-32); Calcium, Blood 9.5 mg/dL (8.5-10.1); Chloride, Blood 90 mmol/L (98-108); Creatinine, Blood 0.55 mg/dL (0.40-1.00); Ethanol (Alcohol), Blood, Med <3 mg/dL; Globulin, Blood 3.5 g/dL (2.2-4.0); Glucose, Blood 342 mg/dL (70-99); Potassium, Blood 3.8 mmol/L (3.5-5.5); Sodium, Blood 128 mmol/L (136-145); Total Protein, Blood 7.1 g/dL (6.4-8.2)
[2025-04-28 17:33] LABS: Salicylate 2.7 mg/dL (2.8-20.0)
[2025-04-28 17:41] LABS: Acetaminophen, Random <2.0 ug/mL (10.0-30.0)
[2025-04-28 18:17] LABS: Source, Urine Clean Catch
[2025-04-28 18:28] LABS: Bilirubin, Urine Neg (Neg); Glucose Qualitative, Urine 4+ (Neg); Ketones, Urine Neg (Neg); Leukocyte Esterase, Urine Neg (Neg); Protein, Urine Neg (Neg); Specific Gravity, Urine 1.010 (1.003-1.022); Urobilinogen, Urine NORM (Normal)
[2025-04-28 18:49] LABS: Color, Urine Pale Yellow (P-Yellow)
[2025-04-28 18:50] LABS: Red Blood Cells, Urine Not Seen /hpf (0-2)
[2025-04-28 20:00] LABS: U Amphetamine Screen DETECTED; U Barbiturate Screen Not Detected; U Benzodiazapine Screen Not Detected; U Buprenorphine Screen Not Detected; U Cannabinoids Screen Not Detected; U Cocaine Screen Not Detected; U Methadone Screen Not Detected; U Methamphetamine Screen DETECTED; U Opiates Screen Not Detected; U Oxycodone Screen Not Detected; U Phencyclidine Screen Not Detected
[2025-04-28 22:08] VITALS: BP 98/69
[2025-04-30 02:38] LABS: KEPPRA (LEVETIRACETAM) <2.0 ug/mL (10.0-40.0)
== END 2025-04-28 22:08 | disposition home or self-care (01) ==
LOC: ER 16:01
PROVIDERS: Emergency Medicine
DX: F39 Unspecified mood [affective] disorder (principal); E11.65 Type 2 diabetes mellitus with hyperglycemia; F15.10 Other stimulant abuse, uncomplicated; R74.01 Elevation of levels of liver transaminase levels; T50.906A Underdosing of unspecified drugs, medicaments and biological substances, initial encounter; E03.9 Hypothyroidism, unspecified; F17.210 Nicotine dependence, cigarettes, uncomplicated; Z91.148 Patient's other noncompliance with medication regimen for other reason; Z88.8 Allergy status to other drugs, medicaments and biological substances; Z79.890 Hormone replacement therapy; Z79.84 Long term (current) use of oral hypoglycemic drugs; Z79.4 Long term (current) use of insulin; Z79.899 Other long term (current) drug therapy
CPT/HCPCS: 36415; 80053; 80177; 80320; 81001; 81025; 85025; 99284; A9270; G0480